=== PATIENT | female | born 1945 | race Caucasian/White ===

== ENCOUNTER 2025-02-01 17:55 | Inpatient (IN) | payer OTHER, SELFPAY ==
[2025-02-01] VITALS (7 sets, daily range): BP systolic 112–137; BP diastolic 49–67; BMI 24.2; BMI 24.0
--- NOTE | 2025-02-01 12:22 | W.PN.UPDATE ---
Update Note
Progress Note Update
Vascular consult/Office note below
Plan:
-Admit to Hospitalist
-Heparin gtt
-Cardiology workup/ embolic source
-LE arterial US/BEATRICE/TBI
-Vein mapping US
-Tentative plan for LE bypass Tuesday 02/[address] Gaitan
[2025-02-01 12:33] LABS: % Basophils 0.3 % (0-2); % Eosinophils 1.4 % (0-6); % Immature Granulocytes 0.4 % (0-0.5); % Lymphocytes 42.1 % (20.5-51.1); % Monocytes 5.4 % (1.7-9.3); % Neutrophils 50.4 % (42.2-75.2); Absolute Eosinophils 0.1 10^3/uL (0-0.7); Absolute Lymphocytes 3.3 10^3/uL (1.2-3.4); Absolute Monocytes 0.4 10^3/uL (0.1-0.6); Hematocrit 41.3 % (37.0-47.0); Hemoglobin 13.7 g/dL (12.0-16.0); Mean Corp Hgb Conc. 33.2 g/dL (33.0-37.0); Mean Corpuscular Hgb 29.5 pg (27.0-31.0); Mean Corpuscular Volume 88.8 fL (81.0-99.0); Mean Platelet Volume 9.6 fL (7.4-10.4); Nucleated Red Blood Cells % 0 %; Platelet Count 186 10^3/uL (130-400); Red Blood Cell Count 4.65 10^6/uL (4.20-5.40); Red Cell Dist. Width 13.7 % (11.5-14.5); White Blood Cell Count 7.8 10^3/uL (4.8-10.8)
[2025-02-01 12:40] LABS: INR 0.96; PT 13.1 Sec (11.4-14.6)
[2025-02-01 12:41] LABS: APTT 26.5 Sec (23.4-35.0)
[2025-02-01 12:49] LABS: ALT (SGPT) 23 U/L (0-35); AST (SGOT) 26 U/L (14-36); Albumin 3.9 g/dl (3.5-5.0); Alkaline Phosphatase 74 U/L (38-126); Blood Urea Nitrogen 14 mg/dl (7-17); Calcium 8.8 mg/dl (8.4-10.2); Carbon Dioxide 29 mmol/L (22-30); Chloride 103 mmol/L (98-107); Glucose 101 mg/dl (70-99); Potassium 4.2 mmol/L (3.5-5.1); Sodium 139 mmol/L (135-145); Total Bilirubin 0.5 mg/dl (0.2-1.3); Total Protein 6.5 g/dl (6.3-8.2); eGFR > 60.00
--- NOTE | 2025-02-01 16:53 | ED.GENMED ---
History of Present Illness
General
Chief Complaint: Cardiac Symptoms
Source: patient and family
Exam Limitations: none
Time Seen by Provider: 02/01/25 15:58
Nursing documentation reviewed up to this point in time: agreed with
History of Present Illness
History of Present Illness:
Patient presents to ED secondary to worsening left toe redness over the past 10 days, along with discomfort when ambulating. Patient had an outpatient CT angiogram of lower extremity which revealed occlusion of SFA. Patient subsequently evaluated
by Dr. Gaitan, vascular surgery. Patient referred to ED for further evaluation and admission, including heparin protocol, along with further workup as inpatient, as patient has been experiencing generalized fatigue and weakness with exertional
activities over the past 3 weeks. Patient denies fever or chills. Denies chest pain or shortness of breath. Denies nausea or vomiting. Denies loss of appetite. Denies recent change in medications or diet. Denies loss of sensation or weakness
of the affected leg.
Review of Systems
Review of Systems
Allergies reviewed?: Yes
All Other Systems: ROS reviewed and negative except as documented in HPI and ROS
Constitutional: Reports fatigue; Denies fever
Respiratory: Reports no symptoms; Denies trouble breathing
Cardiac: Reports no symptoms; Denies chest pain
ABD/GI: Reports no symptoms; Denies vomiting or diarrhea
Musculoskeletal: Reports no symptoms
Skin: Reports other (toe redness w pain)
Neurological: Reports no symptoms; Denies dizzy, headache, weakness or numbness
Phy Exam
Physical Exam
Physical Exam:
Physical Exam
General: no apparent distress, not acutely ill. afebrile
Head: nc/at. eomi
Neck: supple. no meningeal signs.
Heart: s1/s2 regular rate and rhythm, no murmur.
Lungs: no acute respiratory distress. clear bilaterally
Abdomen: normal bowel sounds. not tender.
Neuro: alert and oriented x 3. no focal neurological deficits
Skin: no rash. left 2nd/3rd/4th toe: erythema with mild tenderness over distal phalanx without ecchymosis/discoloration
Psychiatric: well kept. interactive and cooperative
Extremities: no edema. no calf tenderness.
Course
Orders/Labs/Results
Orders:
Orders
02/01/25 Lunch
Cholesterol Lowering
At Your Request: Full Participation
Does patient need a safe tray?: No
Cholesterol Lowering: Sodium, 2 Gram
02/01/25 11:57
ECG [Electrocardiogram (*1)] Urgent
Reason for Study: Chest Pain
EKG- Treatment ONCE
02/01/25 12:17
Comprehensive Metabolic Panel Urgent
PT/INR [Prothrombin Time] Urgent
PTT Urgent
02/01/25 12:18
Complete Blood Count/With Diff Urgent
02/01/25 16:30
US Periph Art LOWER Ext w BEATRICE Routine
Comment: add TBI too please
Reason For Exam: PAD, rest pain
US Vascular Mapping Bilateral Routine
Comment:
Reason For Exam: requires bypass
02/01/25 16:31
Heparin Protocol- PTT Orders As Directed
PTT per Heparin protocol: -Obtain CBC and baseline PTT - if not already collected.
-Obtain PTT 6 hours from start of infusion. Then, every 6 hours until 2 consecutive
PTT's are therapeutic. Then, PTT Daily.
-With each rate change, obtain PTT every 6 hours until 2 consecutive PTT's are
therapeutic. Then, PTT Daily.
Notify MD As Directed
Notify physician if: PTT is greater than or equal to 200.
02/01/25 16:45
Heparin 73828 Units/250 ml 25,000 units in 250 ml IV PER PROTOCOL
Weight to be used for heparin protocol in kilograms (kg):: 64
Protocol:: Vascular Surgery
PTT Goal Range to be used:: PTT 73 to 111 seconds
Order type:: Initial
INITIAL Infusion Dose (UNITS/KG/hr) & then follow protocol:: 18 units/kg/hr
Infusion Dose in UNITS/hr & then follow protocol (UNITS/hr):: 1,200
INFUSION RATE in mL/hr & then follow protocol (mL/hr):: 12
PTT less than or equal to 64 seconds:: Notify Ordering Provider. obtain orders for rate increase &
possible bolus
PTT 64.1 to 72.9 seconds:: Increase rate by 100 units/hr (+ 1 mL/hr)
PTT 73 to 111 seconds:: Target Range. No change in rate.
PTT 111.1 to 130.9 seconds:: Decrease rate by 100 units/hr (- 1 mL/hr)
PTT 131 to 199.9 seconds:: HOLD for 1 hour. Then decrease rate by 200 units/hr (- 2 mL/hr)
PTT greater than or equal to 200 seconds:: STOP INFUSION. Notify Ordering provider to obtain further orders.
Lab follow-up:: Each change, PTT q6h until 2 consecutive are therapeutic. Then PTT
daily.
02/01/25 17:31
Electrocardiogram (*1) Urgent
Reason for Study: Atrial Fibrillation
EKG- Treatment ONCE
02/01/25 17:41
CARDIOLOGY CONSULT Routine
Consulting Provider: Damon Amador
Was physician already notified: Yes
Reason for consult: concern for Afib
02/01/25 17:42
Admit/Transfer Patient As Directed
Co-Sign Provider:
Level of Care: Inpatient admission
Assign to:: Telemetry
Physician / Group: Hospitalist
Diagnosis: b/l SFA occlusion
Reason for Telemetry: Arrhythmia
Date to Stop Telemetry: 02/04/25
Time to Stop Telemetry: 11:00
Reason for Hospitalization: b/l SFA occlusion
Expected length of stay greater than two midnights?: Yes
ELOS- Estimated Length of Stay in days: 2
I certify the patient meets the requirements for IP care: Yes
Vascular Surgery Consult Routine
Consulting Provider: Georgi Gaitan
Was physician already notified: Yes
Reason for consult: SFA occlusion
PRN Pain Medication Management As Directed
May give lesser potent ordered pain med per pt: Yes
preference::
Protocol:: Medication orders for pain may be administered in a
manner that supports deferring to patient preference
when the pt is:
- Requesting an ordered lesser potent pain medication.
Least to most potent pain medications are defined
as: acetaminophen < NSAID < tramadol < opioids
(morphine, oxycodone, hydromorphone).
- Requesting a lesser dose of the same medication IF
ORDERED.
- Requesting a less intrusive route of administration
if both routes are prescribed by the provider (PO <
IV).
02/01/25 17:44
Code Status As Directed
Resuscitation Status: Full Code
02/01/25 17:54
HEMATOLOGY CONSULT Routine
Consulting Provider: Lan Leslie
Was physician already notified: Yes
Reason for consult: thrombophilia w/u
02/01/25 20:24
Acetaminophen [Tylenol] 650 mg PO Q4HPRN PRN
Bisacodyl [Dulcolax] 10 mg RECTAL [id number] PRN
Docusate W/Senna [Senokot-S] 1 tablet PO BIDPRN PRN
Polyethylene Glycol Powder [Miralax] 17 grams PO DAILYPRN PRN
02/01/25 20:24
Echo 2D MMode Color/Doppler Routine
Reason for Study: possible afib
Heparin Protocol- PTT Orders As Directed
PTT per Heparin protocol: -Obtain CBC and baseline PTT - if not already collected.
-Obtain PTT 6 hours from start of infusion. Then, every 6 hours until 2 consecutive
PTT's are therapeutic. Then, PTT Daily.
-With each rate change, obtain PTT every 6 hours until 2 consecutive PTT's are
therapeutic. Then, PTT Daily.
Activity As Directed
Activity Level: Out of Bed-Early Mobility
Notify MD As Directed
Notify physician if: PTT is greater than or equal to 200.
Vital Signs As Directed
Frequency: Per unit guidelines
02/01/25 22:00
Latanoprost [Xalatan Ophthalmic Solution] See Dose Instructions BOTH EYES HS
02/01/25 23:50
PTT Urgent
02/02/25 06:00
Complete Blood Count/With Diff IN AM
Comprehensive Metabolic Panel IN AM
Lipid Profile [Cardiovascular Evaluation] IN AM
Lupus Anticoagulant Panel Refl [S] IN AM
Magnesium IN AM
TSH Reflex To Free T4 IN AM
02/02/25 08:00
Clopidogrel Bisulfate [Plavix] 75 mg PO DAILY
Rosuvastatin Calcium [Crestor] 5 mg PO DAILY
02/03/25 06:00
Complete Blood Count/No Diff Q2D
Comment: Notify MD if platelet count is <130,000 or decreases by 50% from baseline
02/03/25 08:00
Alendronate Sodium [Fosamax] 70 mg PO PEREZ
02/04/25 11:00
DC Protocol for Telemetry ONCE
02/05/25 06:00
Complete Blood Count/No Diff Q2D
Comment: Notify MD if platelet count is <130,000 or decreases by 50% from baseline
02/07/25 06:00
Complete Blood Count/No Diff Q2D
Comment: Notify MD if platelet count is <130,000 or decreases by 50% from baseline
02/09/25 06:00
Complete Blood Count/No Diff Q2D
Comment: Notify MD if platelet count is <130,000 or decreases by 50% from baseline
02/11/25 06:00
Complete Blood Count/No Diff Q2D
Comment: Notify MD if platelet count is <130,000 or decreases by 50% from baseline
02/13/25 06:00
Complete Blood Count/No Diff Q2D
Comment: Notify MD if platelet count is <130,000 or decreases by 50% from baseline
02/15/25 06:00
Complete Blood Count/No Diff Q2D
Comment: Notify MD if platelet count is <130,000 or decreases by 50% from baseline
02/17/25 06:00
Complete Blood Count/No Diff Q2D
Comment: Notify MD if platelet count is <130,000 or decreases by 50% from baseline
Abnormal Lab Results
02/01/25
12:17
Creatinine 0.5 L mg/dL
(0.6-1.0)
Glucose 101 H mg/dl
(70-99)
02/01/25 12:18
02/01/25 12:17
Vital Signs
Initial and Last Documented VS:
Initial Vital Signs
Temp Pulse Resp BP Pulse Ox
97.7 F 63 18 112/58 99
02/01/25 12:07 02/01/25 12:07 02/01/25 12:07 02/01/25 12:07 02/01/25 12:07
Last Documented Vital Signs
Temp Pulse Resp BP Pulse Ox
97.5 F 68 18 137/61 95
02/01/25 20:39 02/01/25 20:39 02/01/25 20:39 02/01/25 20:39 02/01/25 20:39
MDM/Problems Addressed
MDM/Problems Addressed:
Patient evaluated by vascular surgery, Dr. Gaitan. Requests hospitalist admission for further evaluation and treatment, including heparin protocol.
*EKG
Interpreted by ED Provider?: Yes
EKG Intrepretation Date: 02/01/25
Heart Rate: 73
Rate: normal
Rhythm: sinus and PAC's
[place]: normal axis
Interval: normal interval
*Critical Care Note
Total Time (30-74mins, 75-104mins- exclusive of procedures): Not Applicable
ED Attending Note
-
Portions of this chart may have been created with voice recognition software.� Occasional wrong word or��sound alike� substitutions may have occurred due to the inherent limitations of voice recognition software.
Discharge Plan
Departure
Patient Disposition: Admit
Date of Disposition: 02/01/25
Time of Disposition: 17:03
Admit to: Telemetry
Presentation/result/management discussed w/ accepting MD/DO: Hospitalist
Discharge Problem:
PAD (peripheral artery disease)
Interventions
Interventions:
*Risk Screen - Suicide Last Done: 02/01/25 12:07
*General Assessment Last Done: 02/01/25 12:07
*Neglect/Abuse Screening Last Done: 02/01/25 12:07
*ED COVID-19 Vaccine History Last Done: 02/01/25 12:07
*Nursing Disposition Last Done: 02/01/25 21:09
ED- Pulmonary Assessment Last Done: 02/01/25 16:22
ED- Cardiac Assessment Last Done: 02/01/25 16:22
Discharge Date and Time
Discharge Date/Time: 02/01/25 21:11
[2025-02-01] MEDS: HEPARIN 25000 UNITS/250 ML IV (17:46)
--- NOTE | 2025-02-01 17:58 | HPS.HSE ---
Family Physician
-
Family Physician: Josselyn Rehman
Chief Complaint
-
b/l LE pain
History of Present Illness
79yo F with osteoporosis, HLD, CAD sent from the vascular office with findings of b/l SFA occlusion on outpatient CTA. She noticed pain in her toes with discoloration started approximately 2 weeks ago. She never had any feeling of claudication in
LE, not a smoker, does not have family Hx of clotting d/o, did not feel any palpitations, chest pain. No recent infection noticed.
Medical History
Past Medical History
Past Medical History: Reports Other
Additional Past Medical History:
see HPI
Past Surgical History: Reports None
Social History
Tobacco: Former Smoker
Alcohol: None
Drug: None
Family History
Family History: Not pertinent
Allergies / Home Medications
Allergies reflects when Allergies were last updated in [employer].
Home Medications with original date entered in [employer]
Allergy/Medication List:
Allergies
Allergy/AdvReac Type Severity Reaction Status Date / Time
codeine Allergy Unknown Verified 02/01/25 12:11
Penicillins Allergy Unknown Verified 02/01/25 12:11
Home Medications
alendronate 70 mg tablet 70 mg PO PEREZ 02/01/25
calcium carbonate 500 mg PO DAILY 02/01/25
cholecalciferol (vitamin D3) 50 mcg (2,000 unit) tablet (Vitamin D3) 50 mcg PO DAILY 02/01/25
clopidogrel 75 mg tablet 75 mg PO DAILY 02/01/25
latanoprost 0.005 % eye drops 1 drp BOTH EYES HS 02/01/25
rosuvastatin 5 mg tablet 5 mg PO DAILY 02/01/25
Review of Systems
-
History Source: Patient
A 12 point ROS was completed and negative except as noted: Yes
Musculoskeletal: Reports See HPI
Physical Exam
Vital Signs
Vital Signs
Temp Pulse Resp BP Pulse Ox
97.7 F 68 18 134/67 98
02/01/25 12:07 02/01/25 16:24 02/01/25 16:24 02/01/25 16:24 02/01/25 16:24
Physical Exam
General: Well Developed, Well Nourished and No Apparent Distress
HEENT: NormoCephalic, Anicteric and Moist mucous membranes
Respiratory: Clear; No Wheezes, Rhonchi or Crackles
Cardiac: Irregular Rhythm; No Tachycardia or Murmur
GI: Soft, Non Tender and Non Distended
Genito-urinary: No costovertebral tender
Musculoskeletal: No Clubbing, No Cyanosis, No Edema and Other
Skin: Other (cyanosis of the toes)
Neuro: Awake, Alert, Oriented and AO x 3
Psych: Calm
Laboratory Results
-
02/01/25 12:18
02/01/25 12:17
Laboratory Results
PT 13.1 Sec (11.4-14.6) 02/01/25 12:17
INR 0.96 02/01/25 12:17
APTT 26.5 Sec (23.4-35.0) 02/01/25 12:17
Total Bilirubin 0.5 mg/dl (0.2-1.3) 02/01/25 12:17
AST 26 U/L (14-36) 02/01/25 12:17
ALT 23 U/L (0-35) 02/01/25 12:17
Alkaline Phosphatase 74 U/L (38-126) 02/01/25 12:17
Impression/Plan
-
A/P:
#concern for critical ischemia of LE 2/2 b/l SFA occlusion
#Irregular HR
Heparin drip
Vasc Sx for mgmt
Telemetry
Echo
Cardio consult
EKG in ED with PACs
cont Plavix
check TSH, Lipid panel
Will need w/u for thrombophilia - hematology and send Lupus AC for now. Defer Protein S,C, factor V leuden, [id number] to outpatient as per hospital policy
#Osteoporosis
#Glaucoma
#HLD
cont home meds
DVT ppx heparin drip
Full code
I have spent at least 78min reviewing chart, test results, communication with consultants and providing direct patient care
--- NOTE | 2025-02-01 20:30 | PTCARENOTE ---
Pt arrived to unit from ED, ambulated independently from stretcher to bed. No complaints of pain, dizziness or numbness in legs. AAOx3, VSS. Pt oriented to room and call rocha is in reach.
[2025-02-01] MEDS: XALATAN OPHTHALMIC SOLUTION 1 DROP BOTH EYES (21:04)
[2025-02-02 00:20] LABS: APTT 104.4 Sec (23.4-35.0)
[2025-02-02 03:08] VITALS: BP 130/48
[2025-02-02 07:14] VITALS: BP 135/61
--- NOTE | 2025-02-02 09:12 | W.PN.HOSP.TC ---
Today's Communication/Plan
-
pending VascSx mgmt
Echo
Assessment / Plan
Assessment / Plan
79yo F with osteoporosis, HLD, CAD sent from the vascular office with findings of b/l SFA occlusion on outpatient CTA. pending angiogram by Vascular on 02/06/25
A/P:
#concern for critical ischemia of LE 2/2 b/l SFA occlusion
#Irregular HR
Heparin drip
Vasc Sx for mgmt
Telemetry
Echo
Cardio consult
EKG in ED with PACs
cont Plavix
check TSH, Lipid panel
Will need w/u for thrombophilia - hematology consult and send Lupus AC for now. Defer Protein S,C, factor V leuden, [id number] to outpatient as per hospital policy
#Osteoporosis
#Glaucoma
#HLD
cont home meds
DVT ppx heparin drip
Full code
I have spent at least 58min reviewing chart, test results, communication with consultants and providing direct patient care
Anticipated Discharge: > 48 hours
Subjective/Interval History
-
Date of Service: February 02, 2025
Objective Data
-
Labs:
Laboratory Results
02/01/25 02/02/25 02/02/25
23:58 09:05 09:06
WBC Pending
Hgb Pending
Hct Pending
Plt Count Pending
APTT 104.4 H Pending
Sodium Pending
Potassium Pending
Chloride Pending
Carbon Dioxide Pending
BUN Pending
Creatinine Pending
Glucose Pending
Calcium Pending
Total Bilirubin Pending
AST Pending
ALT Pending
Alkaline Phosphatase Pending
Vital Signs:
Vital Signs
Temp Pulse Resp BP Pulse Ox
97.5 F 61 18 135/61 97
02/02/25 07:14 02/02/25 07:14 02/02/25 07:14 02/02/25 07:14 02/02/25 07:14
I&O
02/01/25 02/02/25 02/03/25
06:59 06:59 06:59
Intake Total 120 / 120
Balance 120 / 120
Review of Systems
-
History Source: Patient
All other systems: Reviewed and negative
Physical Exam
-
General: No Apparent Distress
HEENT: Normocephalic
Respiratory: Clear to Auscultation
Cardiac: Regular Rhythm
Genito-urinary: No Costovertebral Tender
Musculoskeletal: No Clubbing, No Cyanosis and No Edema
Skin: Other (resolved darkening of toes)
Neuro: Awake, Alert, Oriented and AO x 3
Psych: Calm
[2025-02-02 09:27] LABS: % Basophils 0.5 % (0-2); % Eosinophils 2.3 % (0-6); % Immature Granulocytes 0.3 % (0-0.5); % Lymphocytes 49.2 % (20.5-51.1); % Monocytes 6.1 % (1.7-9.3); % Neutrophils 41.6 % (42.2-75.2); Absolute Eosinophils 0.2 10^3/uL (0-0.7); Absolute Lymphocytes 3.2 10^3/uL (1.2-3.4); Absolute Monocytes 0.4 10^3/uL (0.1-0.6); Absolute Neutrophils 2.7 10^3/uL (1.4-6.5); Hematocrit 42.3 % (37.0-47.0); Hemoglobin 14.3 g/dL (12.0-16.0); Mean Corp Hgb Conc. 33.8 g/dL (33.0-37.0); Mean Corpuscular Hgb 29.9 pg (27.0-31.0); Mean Corpuscular Volume 88.5 fL (81.0-99.0); Mean Platelet Volume 9.8 fL (7.4-10.4); Nucleated Red Blood Cells % 0 %; Platelet Count 186 10^3/uL (130-400); Red Blood Cell Count 4.78 10^6/uL (4.20-5.40); Red Cell Dist. Width 13.6 % (11.5-14.5); White Blood Cell Count 6.4 10^3/uL (4.8-10.8)
[2025-02-02] MEDS: PLAVIX 75 MG PO (09:28)
[2025-02-02] MEDS: CRESTOR 5 MG PO (09:29)
[2025-02-02 09:58] LABS: APTT > 200.0 Sec (23.4-35.0)
--- NOTE | 2025-02-02 10:00 | PTCARENOTE ---
patient's APTT > 200, per Protocol, infusion stopped and ordering provider notified, MD Espinoza. Per MD restart in 2 hours at infusion rate 10ml/hr.
[2025-02-02 10:23] LABS: ALT (SGPT) 19 U/L (0-35); AST (SGOT) 24 U/L (14-36); Albumin 4.1 g/dl (3.5-5.0); Alkaline Phosphatase 78 U/L (38-126); Blood Urea Nitrogen 12 mg/dl (7-17); Calcium 8.9 mg/dl (8.4-10.2); Carbon Dioxide 28 mmol/L (22-30); Chloride 104 mmol/L (98-107); Estimated Creatinine Clearance 64 ml/min; Glucose 104 mg/dl (70-99); HDL Cholesterol 61 mg/dl; LDL Cholesterol, Calculated 103 mg/dl; Magnesium 2.5 mg/dl (1.6-2.3); Potassium 4.3 mmol/L (3.5-5.1); Sodium 138 mmol/L (135-145); Total Bilirubin 0.9 mg/dl (0.2-1.3); Total Cholesterol 193 mg/dl (50-199); Total Protein 6.5 g/dl (6.3-8.2); Triglyceride 145 mg/dl (10-149); Very Low Density Lipoprotein 29 mg/dl (0-30); eGFR > 60.00
[2025-02-02 10:42] LABS: TSH Reflex To Free T4 1.29 uIU/ml (0.47-4.68)
[2025-02-02 11:26] VITALS: BP 115/50
--- NOTE | 2025-02-02 11:38 | CON.CAR ---
Addendum entered and electronically signed by Damon Amador MD 02/02/25 13:04:
Patient was seen and evaluated personally. I agree with plan of care, physical examination and documentation as noted below.
Briefly, 79-year-old woman with hypertension, hyperlipidemia and peripheral artery disease with concerns for bilateral SFA occlusion is being evaluated for possible vascular intervention by Dr. Gaitan later this week . Patient was noted to have
irregularly irregular rhythm on the elementary and cardiology was consulted for possible atrial fibrillation. Patient's rhythm strip was reviewed in detail and patient is in normal sinus rhythm with frequent PACs. Patient is not on any
beta-blockers and we will start her on 25 mg twice a day of metoprolol. Patient has had no workup done in the past. We will start patient's workup with an echo and rule out any ischemic heart disease with stress test on Tuesday for her possible
vascular surgery plan for later this week.
Echo on Tuesday
Myocardial perfusion scan on Tuesday.
If both tests are normal, okay to proceed for the vascular surgery as planned on 02/06/25
Original Note:
Consultation
Consultation Request
Date/Time Consultation Requested: 02/01/2025 17:15
Date/Time Consultation Performed: 02/02/2025 10:45
Requesting Provider: Dr. Espinoza
Performing Provider: VIRAJ Mai for Dr. Amador
Reason for Consultation: Concern for atrial fibrillation
Medical History
-
Chief Complaint: Right sided foot/toe pain
History of Present Illness:
Ria Diop is an 79-year-old female with hypertension, dyslipidemia, and osteoporosis who was referred from the vascular surgery office after concerns of bilateral SFA occlusion on an outpatient CTA. Testing was prompted by redness and pain in
her right toes. Imaging reviewed by vascular surgeon reports it appeared to be a flush occlusion concern for thrombotic occlusion. Cardiology was consulted for concern for atrial fibrillation. Hematology is also following. The plan is for
vascular surgery 02/06/2025. She has no chest pain, shortness of breath, nor palpitations.
Past Medical History
Past Medical History: HTN, Hypercholesterolemia and Other (PAD)
Social History
Tobacco: Former Smoker (1 PPD x 20 years)
Alcohol: Occasional
Drug: None
Personal:
Living: With Family
Employment: Retired
Family History
Family History: Reviewed & Not Pertinent
Allergies / Home Medications
Allergy/AdvReac Type Severity Reaction Status Date / Time
Penicillins Allergy Severe Swelling Verified 02/01/25 20:53
codeine Allergy Intermediate Swelling Verified 02/01/25 20:53
�Medication �Instructions �Recorded �Confirmed �Type
alendronate 70 mg tablet 70 mg PO PEREZ Osteoperosis 02/01/25 02/01/25 History
calcium carbonate 500 mg PO DAILY Supplement 02/01/25 02/01/25 History
cholecalciferol (vitamin D3) 50 50 mcg PO DAILY Supplement 02/01/25 02/01/25 History
mcg (2,000 unit) tablet (Vitamin
D3)
clopidogrel 75 mg tablet 75 mg PO DAILY Blood Clot 02/01/25 02/01/25 History
Prevention/Tx
latanoprost 0.005 % eye drops 1 drp BOTH EYES HS Eye Condition 02/01/25 02/01/25 History
rosuvastatin 5 mg tablet 5 mg PO DAILY High Cholesterol 02/01/25 02/01/25 History
Review of Systems
-
History Source: Patient
All other systems: Negative unless noted
Constitutional: No Symptoms
EENT: No Symptoms
Respiratory: No Symptoms
Cardiac: No Symptoms
Abdomen/GI: No Symptoms
: No Symptoms
Musculoskeletal: No Symptoms
Skin: No Symptoms
Neurological: No Symptoms
Endocrine: No Symptoms
Hematologic/Lymphatic: No Symptoms
Physical Exam
Vital Signs
Temp Pulse Resp BP Pulse Ox
97.9 F 70 18 115/50 96
02/02/25 11:26 02/02/25 11:26 02/02/25 11:26 02/02/25 11:26 02/02/25 11:26
Lab Results
02/02/25 09:06
02/02/25 09:06
Physical Exam
General: Well Developed, Well Nourished, No Apparent Distress and Comfortable
HEENT: Normocephalic, Anicteric and Moist Mucous Membranes
Respiratory: Clear and Non Labored Respirations
Cardiac: S1/S2 and Regular Rhythm
Breast: Deferred by me
GI: Non Tender, Non Distended and Normal Bowel Sounds
Rectal: Deferred by Provider
Genito-urinary: No Costovertebral Tender
Musculoskeletal: No Clubbing and No Cyanosis
Skin: Warm and Dry
Neuro: AO x 3
Hematologic/Lymphatic: No Lymphadenopathy
Psych: Calm
Impression / Plan
-
I/P: 79F with hypertension, dyslipidemia, and osteoporosis who was referred from the vascular surgery office after concerns of bilateral SFA occlusion on an outpatient CTA
Outpatient center lead consultant: None
Preoperative risk assessment - LE Bypass with Dr. Gaitan
- Denies chest pain and shortness of breath
- Echocardiogram Tuesday
- Lexiscan nuclear stress test on Tuesday
PAD with SFA occlusion
- On clopidogrel and heparin per vascular surgery
- Plans are for bypass tentatively 02/06/2025
- Thrombophilia workup per hematology
PACs, start beta-chet
Hypertension, on no agents prior to arrival, metoprolol succinate started as above
HLD, on rosuvastatin 5 mg, LDL 103, increased to 20 mg
Data Reviewed
-
EKG: Report Reviewed by me (Sinus rhythm with PACs)
Labs: Labs Reviewed by me
Old Records: Reviewed
[2025-02-02] MEDS: TYLENOL 650 MG PO (12:00)
--- NOTE | 2025-02-02 12:15 | CON.ONC ---
Impression
Impression
Peripheral arterial disease with SFA occlusion
Hypercholesterolemia
Hypertension
Plan
Plan
Arterial thrombophilia -prothrombin gene mutation, lupus anticoagulant and anticardiolipin antibody
Anticipate bypass
Patient History
History of Present Illness
Patient is [id number] female with hypertension, dyslipidemia, and osteoporosis who was referred from the vascular surgery office after concerns of bilateral SFA occlusion on an outpatient CTA prompted by complaints of left foot pain and red toes.
Previously evaluated last week at where a CTA was performed. She was discharged and referred to vascular surgery Imaging reviewed by vascular surgeon reports it appeared to be a flush occlusion concern for thrombotic
occlusion. Cardiology was consulted for concern for atrial fibrillation. Hematology is also following. The plan is for vascular surgery 02/06/2025. She has no chest pain, shortness of breath, nor palpitations. She was accompanied by her daughter
and during today's consultation.
Past-Medical/Surgical History
Past Medical History
HTN, Hypercholesterolemia, peripheral arterial disease and Osteoporosis
Social History
Tobacco: Former Smoker (1 PPD x 20 years)
Alcohol: Occasional
Drug: None
Personal:
Living: With Family
Employment: Retired
Family History
Family History: Reviewed & Not Pertinent
Patient Medication
�Medication �Instructions �Recorded �Confirmed �Last Taken �Type
alendronate 70 mg tablet 70 mg PO PEREZ Osteoperosis 02/01/25 02/01/25 01/27/25 History
calcium carbonate 500 mg PO DAILY Supplement 02/01/25 02/01/25 01/31/25 History
cholecalciferol (vitamin D3) 50 50 mcg PO DAILY Supplement 02/01/25 02/01/25 01/31/25 History
mcg (2,000 unit) tablet (Vitamin
D3)
clopidogrel 75 mg tablet 75 mg PO DAILY Blood Clot 02/01/25 02/01/25 02/01/25 History
Prevention/Tx
latanoprost 0.005 % eye drops 1 drp BOTH EYES HS Eye Condition 02/01/25 02/01/25 01/31/25 History
rosuvastatin 5 mg tablet 5 mg PO DAILY High Cholesterol 02/01/25 02/01/25 01/31/25 History
Active Medications
Generic Name Dose Route Start Last Admin
Trade Name Freq PRN Reason Stop Dose Admin
Acetaminophen 650 mg 02/01/25 20:24 02/02/25 12:00
Acetaminophen 325 Mg Tablet PO 03/01/25 20:23 650 mg
[id number] PRN Administration
mild pain/PATEL/temp> 100.4F
Alendronate Sodium 70 mg 02/03/25 08:00
Alendronate 70 Mg Tablet PO 03/03/25 07:59
PEREZ JINA
Bisacodyl 10 mg 02/01/25 20:24
Bisacodyl 10 Mg Rectal Suppository RECTAL 03/01/25 20:23
[id number] PRN
constipation
Clopidogrel Bisulfate 75 mg 02/02/25 08:00 02/02/25 09:28
Clopidogrel 75 Mg Tablet PO 03/02/25 07:59 75 mg
DAILY JINA Administration
Heparin Sodium 25,000 units in 250 mls @ 0 mls/hr 02/01/25 16:45 02/01/25 17:46
Heparin 84357 Units/250 Ml IV 250 mls
PER PROTOCOL JINA Administration
Protocol
Per Protocol
Latanoprost 0 drop 02/01/25 22:00 02/01/25 21:04
Latanoprost 0.005% (Ophthalmic Solution) 2.5 Ml Bottle BOTH EYES 03/01/25 21:59 1 drop
HS JINA Administration
Metoprolol Succinate 25 mg 02/02/25 20:00
Metoprolol 25 Mg Extended Release Tablet PO 03/02/25 19:59
BID JINA
Polyethylene Glycol 17 grams 02/01/25 20:24
Polyethylene Glycol Powder 17 Grams Packet PO 03/01/25 20:23
DAILYPRN PRN
constipation
Rosuvastatin Calcium 20 mg 02/02/25 11:44
Rosuvastatin (Crestor) 5 Mg Tablet PO 03/02/25 07:59
DAILY JINA
Senna/Docusate Sodium 1 tablet 02/01/25 20:24
Docusate W/Senna (Gaye-Colace) Tablet PO 03/01/25 20:23
BIDPRN PRN
constipation
Sodium Chloride 0 flush 02/01/25 21:00
Sodium Chloride 0.9% (Flush) Syringe IV 03/01/25 20:59
PER PROTOCOL JINA
Review of Systems
-
12 point review of systems fails elicit additional complaints
Physical Exam
-
Physical Exam
General: Well Developed, Well Nourished, No Apparent Distress and Comfortable
HEENT: Normocephalic
Respiratory: Clear
Cardiac: S1/S2 and Regular Rhythm
GI: Non Tender, Non Distended and Normal Bowel Sounds
Genito-urinary: No Costovertebral Tender
Musculoskeletal: No Clubbing and No Cyanosis
Skin: Warm and Dry
Neuro: AO x 3
Hematologic/Lymphatic: No Lymphadenopathy
Psych: Calm
Labs
Lab Results
WBC 6.4 10^3/uL (4.8-10.8) 02/02/25 09:06
RBC 4.78 10^6/uL (4.20-5.40) 02/02/25 09:06
Hgb 14.3 g/dL (12.0-16.0) 02/02/25 09:06
Hct 42.3 % (37.0-47.0) 02/02/25 09:06
MCV 88.5 fL (81.0-99.0) 02/02/25 09:06
MCH 29.9 pg (27.0-31.0) 02/02/25 09:06
MCHC 33.8 g/dL (33.0-37.0) 02/02/25 09:06
RDW 13.6 % (11.5-14.5) 02/02/25 09:06
Plt Count 186 10^3/uL (130-400) 02/02/25 09:06
MPV 9.8 fL (7.4-10.4) 02/02/25 09:06
Abs Immat Gran (auto) 0.0 10^3/uL (0-0.05) 02/02/25 09:06
Absolute Neuts (auto) 2.7 10^3/uL (1.4-6.5) 02/02/25 09:06
Absolute Lymphs (auto) 3.2 10^3/uL (1.2-3.4) 02/02/25 09:06
Absolute Monos (auto) 0.4 10^3/uL (0.1-0.6) 02/02/25 09:06
Absolute Eos (auto) 0.2 10^3/uL (0-0.7) 02/02/25 09:06
Absolute Basos (auto) 0.0 10^3/uL (0-0.2) 02/02/25 09:06
Immature Gran % 0.3 % (0-0.5) 02/02/25 09:06
Neutrophils % 41.6 % (42.2-75.2) L 02/02/25 09:06
Lymphocytes % 49.2 % (20.5-51.1) 02/02/25 09:06
Monocytes % 6.1 % (1.7-9.3) 02/02/25 09:06
Eosinophils % 2.3 % (0-6) 02/02/25 09:06
Basophils % 0.5 % (0-2) 02/02/25 09:06
Creatinine 0.5 mg/dL (0.6-1.0) L 02/02/25 09:06
Vital Signs
Vital Signs
Temp Pulse Resp BP Pulse Ox
97.9 F 70 18 115/50 96
02/02/25 11:26 02/02/25 11:26 02/02/25 11:26 02/02/25 11:26 02/02/25 11:26
[2025-02-02 15:10] VITALS: BP 115/51
--- NOTE | 2025-02-02 15:49 | PTCARENOTE ---
Patient c/o pain and tingling to LLE, Patients toes remain pink and is not hot to touch. patient states pain is a new change. Patient ambulating in room. Patient remains on heparin gtt. patient in NAD. MD Espinoza notified of new findings and states
no new orders at this time.
--- NOTE | 2025-02-02 16:05 | CM ---
CM reviewed chart, patient seen bedside with daughter, initial assessment completed. Patient resides independently in a private home, multiple story, first floor set up. Patient denies use of DME, denies VN/SNF history. Patient PCP Josselyn Rehman,
pharmacy [facility], confirms prescription coverage. Cardiology following, stress test Tuesday, patient for vascular surgery 02/06. CM will continue to follow for all discharge planning needs.
Plan; home no needs, watch for VN needs closer to discharge
[2025-02-02] MEDS: HEPARIN 25000 UNITS/250 ML IV (17:25)
[2025-02-02 19:24] LABS: APTT 99.3 Sec (23.4-35.0)
[2025-02-02 19:30] VITALS: BP 120/63
[2025-02-02] MEDS: TOPROL XL 25 MG PO (20:29)
[2025-02-02 23:00] VITALS: BP 135/75
[2025-02-02] MEDS: XALATAN OPHTHALMIC SOLUTION 1 DROP BOTH EYES (23:03)
[2025-02-03 02:00] LABS: APTT 130.9 Sec (23.4-35.0)
[2025-02-03 03:30] VITALS: BP 117/52
[2025-02-03 07:25] VITALS: BP 123/52
[2025-02-03 08:05] LABS: Lactic Acid 0.8 mmol/L (0.7-2.0)
[2025-02-03 08:07] LABS: Hematocrit 38.8 % (37.0-47.0); Hemoglobin 13.2 g/dL (12.0-16.0); Mean Corpuscular Hgb 29.9 pg (27.0-31.0); Mean Corpuscular Volume 87.8 fL (81.0-99.0); Mean Platelet Volume 9.8 fL (7.4-10.4); Platelet Count 190 10^3/uL (130-400); Red Blood Cell Count 4.42 10^6/uL (4.20-5.40); Red Cell Dist. Width 13.6 % (11.5-14.5); White Blood Cell Count 6.7 10^3/uL (4.8-10.8)
[2025-02-03 08:09] LABS: APTT 116.3 Sec (23.4-35.0)
[2025-02-03 09:36] LABS: Glycohemoglobin (HgbA1c) 5.5 % (4.0-5.6)
[2025-02-03] MEDS: PLAVIX 75 MG PO (09:48)
[2025-02-03] MEDS: TOPROL XL 25 MG PO (09:48)
[2025-02-03] MEDS: CRESTOR 20 MG PO (09:48)
--- NOTE | 2025-02-03 10:56 | W.PN.HOSP.TC ---
Today's Communication/Plan
-
Echo and stress test in AM
cont heparin drip
Angio on Tue
Assessment / Plan
Assessment / Plan
79yo F with osteoporosis, HLD, CAD sent from the vascular office with findings of b/l SFA occlusion on outpatient CTA. pending angiogram by Vascular on 02/06/25. Cardiology for Echo and stress test on 02/04/25 for risk stratification
A/P:
#concern for critical ischemia of LE 2/2 b/l SFA occlusion
#Irregular HR
Heparin drip
Vasc Sx for mgmt
Telemetry
Echo
Cardio consult: stress test on 02/04/25
EKG in ED with PACs
cont Plavix
check TSH, Lipid panel
Will need w/u for thrombophilia - hematology consult
#Osteoporosis
#Glaucoma
#HLD
cont home meds
DVT ppx heparin drip
Full code
I have spent at least 38min reviewing chart, test results, communication with consultants and providing direct patient care
Anticipated Discharge: > 48 hours
Subjective/Interval History
-
Date of Service: February 03, 2025
Objective Data
-
Labs:
Laboratory Results
02/03/25 02/03/25 02/03/25
01:40 07:45 14:30
WBC 6.7
Hgb 13.2
Hct 38.8
Plt Count 190
APTT 130.9 H 116.3 H Pending
Vital Signs:
Vital Signs
Temp Pulse Resp BP Pulse Ox
97.0 F 52 16 123/52 96
02/03/25 07:25 02/03/25 07:25 02/03/25 07:25 02/03/25 07:25 02/03/25 07:25
I&O
02/02/25 02/03/25 02/04/25
06:59 06:59 06:59
Intake Total 120 / 120 1296 / 1296
Balance 120 / 120 1296 / 1296
Review of Systems
-
History Source: Patient
All other systems: Reviewed and negative
Physical Exam
-
General: No Apparent Distress and Comfortable
Respiratory: Clear to Auscultation
GI: Soft, Nontender and Nondistended
Skin: Other (no discoloration of the toes)
Neuro: Awake, Alert, Oriented and AO x 3
Psych: Calm
[2025-02-03 11:33] VITALS: BP 112/47
[2025-02-03] MEDS: FOSAMAX 70 MG PO (11:42)
[2025-02-03 14:58] LABS: APTT 83.7 Sec (23.4-35.0)
[2025-02-03 15:31] VITALS: BP 113/38
[2025-02-03 19:30] VITALS: BP 122/57
[2025-02-03 21:03] LABS: APTT 61.3 Sec (23.4-35.0)
[2025-02-03] MEDS: XALATAN OPHTHALMIC SOLUTION 1 DROP BOTH EYES (22:22)
[2025-02-03] MEDS: HEPARIN 25000 UNITS/250 ML IV (22:46)
[2025-02-03 23:21] VITALS: BP 119/63
[2025-02-04 03:19] VITALS: BP 128/56
[2025-02-04 05:29] LABS: APTT 108.7 Sec (23.4-35.0)
[2025-02-04 07:53] VITALS: BP 132/56
--- NOTE | 2025-02-04 08:50 | W.PN.CD ---
Today's Communication / Plan
-
echo and stress test
continue plavix, heparin drip, Toprol XL
Impression / Plan
-
I/P: 79F with hypertension, dyslipidemia, and osteoporosis who was referred from the vascular surgery office after concerns of bilateral SFA occlusion on an outpatient CTA
Outpatient mails supervisor: None
Preoperative risk assessment - LE Bypass with Dr. Gaitan
- Echocardiogram today
- Lexiscan nuclear stress test today
PAD with SFA occlusion: severe, requiring hospitalization
- On clopidogrel and heparin drip
-heparin drip is a high risk medication, requiring monitoring of Hgb
- Thrombophilia workup per hematology
PAC's: now on Toprol XL, continue
Hypertension: cont Toprol XL
HLD, on rosuvastatin 5 mg, LDL 103, increased to 20 mg to target LDL under 55
Physical Exam
Vital Signs/Labs
Vital Signs
Temp Pulse Resp BP Pulse Ox
97.5 F 54 17 132/56 98
02/04/25 07:53 02/04/25 07:53 02/04/25 07:53 02/04/25 07:53 02/04/25 07:53
PT 13.1 Sec (11.4-14.6) 02/01/25 12:17
INR 0.96 02/01/25 12:17
APTT 108.7 Sec (23.4-35.0) H 02/04/25 05:10
Magnesium 2.5 mg/dl (1.6-2.3) H 02/02/25 09:06
Triglycerides 145 mg/dl (10-149) 02/02/25 09:06
LDL Cholesterol, Calc 103 mg/dl 02/02/25 09:06
VLDL Cholesterol, Calc 29 mg/dl (0-30) 02/02/25 09:06
HDL Cholesterol 61 mg/dl 02/02/25 09:06
Physical Exam
Constitutional: No acute distress and Comfortable
EENT: Moist mucous membranes
Cardiovascular: Rhythm & rate is regular, Pedal edema is absent and JVD pressure is normal
Respiratory: Respiratory effort normal
Neuro/Psych: AO x 3
Data Reviewed
-
Date of Service: February 04, 2025
EKG: Tracing Personally Visualized and interpreted (SR with PAC's)
Labs: Labs Reviewed by me
[2025-02-04] MEDS: LEXISCAN 0.4 MG IV (09:51)
[2025-02-04] MEDS: FLUSH (NSS) 1 FLUSH IV (09:52)
[2025-02-04 10:45] LABS: Erythrocyte Sed Rate 6 mm/hour (0-20)
[2025-02-04 12:09] VITALS: BP 129/51
--- NOTE | 2025-02-04 12:15 | PTCARENOTE ---
12:15 Pt return from Stress tests, Heparin IV drip was stopped for one hour during Stress test. Spoke to Rita Seay STRAIGHT EDGER over phone and ordered to restart Heparin IV drip at 900 units per hour then recheck PTT level at 1400. Noted orders and
explain to pt, continue to monitor pt.
--- NOTE | 2025-02-04 12:18 | W.PN.HOSP.TC ---
Today's Communication/Plan
-
monitor vitals
see plan
vascular surgery to see
cw hep,plavix
Discussed with daughter at bedside
Assessment / Plan
Assessment / Plan
79yo F with osteoporosis, HLD, CAD sent from the vascular office with findings of b/l SFA occlusion on outpatient CTA. pending angiogram by Vascular on 02/06/25. Cardiology for Echo and stress test on 02/04/25 for risk stratification
A/P:
#concern for critical ischemia of LE 2/2 b/l SFA occlusion
Heparin drip
Vasc Sx for mgmt
PACs, now on Toprol-XL
Echo 02/04 with preserved EF, no wall motion abnormality. Stress test also negative
Plan for or tentatively Tuesday
Vascular surgery
cont Plavix, heparin
Will need w/u for thrombophilia - hematology following
#Osteoporosis
#Glaucoma
#HLD
cont home meds
DVT ppx heparin drip
Full code
General: No Apparent Distress
HEENT: Normocephalic
Respiratory: Clear to Auscultation
Cardiac: Regular Rhythm
Genito-urinary: No Costovertebral Tender
Musculoskeletal: No Edema
Neuro: Awake, Alert, Oriented and AO x 3
Psych: Calm
Anticipated Discharge: > 48 hours
Subjective/Interval History
-
Date of Service: February 04, 2025
denies nausea
Objective Data
-
Labs:
Laboratory Results
02/04/25 02/04/25 02/04/25
04:22 05:10 08:40
WBC Pending
Hgb Pending
Hct Pending
Plt Count Pending
APTT Cancelled 108.7 H
Sodium Pending
Potassium Pending
Chloride Pending
Carbon Dioxide Pending
BUN Pending
Creatinine Pending
Glucose Pending
Calcium Pending
02/04/25
11:55
WBC
Hgb
Hct
Plt Count
APTT Pending
Sodium
Potassium
Chloride
Carbon Dioxide
BUN
Creatinine
Glucose
Calcium
Vital Signs:
Vital Signs
Temp Pulse Resp BP Pulse Ox
97.5 F 60 17 129/51 97
02/04/25 12:09 02/04/25 12:09 02/04/25 12:09 02/04/25 12:09 02/04/25 12:09
I&O
02/03/25 02/04/25 02/05/25
06:59 06:59 06:59
Intake Total 1296 / 1296 1440 / 1440
Balance 1296 / 1296 1440 / 1440
[2025-02-04 12:53] LABS: % Basophils 0.4 % (0-2); % Eosinophils 2.3 % (0-6); % Immature Granulocytes 0.1 % (0-0.5); % Lymphocytes 47.6 % (20.5-51.1); % Neutrophils 41.6 % (42.2-75.2); Absolute Eosinophils 0.2 10^3/uL (0-0.7); Absolute Lymphocytes 3.3 10^3/uL (1.2-3.4); Absolute Monocytes 0.6 10^3/uL (0.1-0.6); Absolute Neutrophils 2.9 10^3/uL (1.4-6.5); Hematocrit 42.7 % (37.0-47.0); Hemoglobin 14.5 g/dL (12.0-16.0); Mean Corpuscular Hgb 29.8 pg (27.0-31.0); Mean Corpuscular Volume 87.9 fL (81.0-99.0); Mean Platelet Volume 9.8 fL (7.4-10.4); Nucleated Red Blood Cells % 0 %; Platelet Count 183 10^3/uL (130-400); Red Blood Cell Count 4.86 10^6/uL (4.20-5.40); Red Cell Dist. Width 13.4 % (11.5-14.5)
[2025-02-04 13:16] LABS: Blood Urea Nitrogen 15 mg/dl (7-17); Calcium 9.5 mg/dl (8.4-10.2); Carbon Dioxide 29 mmol/L (22-30); Chloride 101 mmol/L (98-107); Estimated Creatinine Clearance 64 ml/min; Glucose 99 mg/dl (70-99); Potassium 4.4 mmol/L (3.5-5.1); Sodium 137 mmol/L (135-145); eGFR > 60.00
[2025-02-04] MEDS: CRESTOR 20 MG PO (13:36)
[2025-02-04] MEDS: PLAVIX 75 MG PO (13:36)
[2025-02-04 14:26] LABS: APTT 57.3 Sec (23.4-35.0)
--- NOTE | 2025-02-04 15:06 | W.PN.UPDATE ---
Update Note
Progress Note Update
Echo shows normal LVEF 55%, mild AR. No ischemia on nuclear stress. She can proceed to vascular surgery at intermediate risk. Toprol XL should not be interrupted. We will see again post op.
[2025-02-04 15:24] VITALS: BP 119/49
--- NOTE | 2025-02-04 18:06 | PTCARENOTE ---
1530 Noted PTT level 57.3 (per IV heparin drip protocol to notify MD ) Dr. Doran aware via [employer] and recommended to notify vascular. Spoke to Gely RENTERIA over phone and ordered to continue current IV heparin drip rate and reheck PTT level at
1800. Noted new IV Heparin drip orders. Explain to pt,continue to monitor pt.
[2025-02-04 18:45] LABS: APTT 77.8 Sec (23.4-35.0)
[2025-02-04 19:45] VITALS: BP 131/57
[2025-02-04] MEDS: TOPROL XL 25 MG PO (20:15)
[2025-02-04] MEDS: XALATAN OPHTHALMIC SOLUTION 1 DROP BOTH EYES (20:18)
[2025-02-04 23:19] VITALS: BP 128/61
[2025-02-05 01:46] LABS: APTT 92.7 Sec (23.4-35.0)
[2025-02-05 03:08] VITALS: BP 138/64
[2025-02-05] MEDS: HEPARIN 25000 UNITS/250 ML IV (04:36)
[2025-02-05 07:00] VITALS: BP 120/52
[2025-02-05 07:05] LABS: Cardiolipin IgA Antibody <10 APL (<=11); Cardiolipin IgM Antibody 11 MPL (<=12); Cardiolipin Igg Antibody <10 GPL (<=14)
[2025-02-05] MEDS: CRESTOR 20 MG PO (07:45)
[2025-02-05] MEDS: TOPROL XL 25 MG PO ×2 (07:45→19:36)
[2025-02-05] MEDS: PLAVIX 75 MG PO (07:45)
[2025-02-05 08:11] LABS: APTT 81.4 Sec (23.4-35.0)
[2025-02-05 08:16] LABS: Hemoglobin 13.5 g/dL (12.0-16.0); Mean Corp Hgb Conc. 33.8 g/dL (33.0-37.0); Mean Corpuscular Hgb 29.9 pg (27.0-31.0); Mean Corpuscular Volume 88.7 fL (81.0-99.0); Mean Platelet Volume 10.3 fL (7.4-10.4); Platelet Count 179 10^3/uL (130-400); Red Blood Cell Count 4.51 10^6/uL (4.20-5.40); Red Cell Dist. Width 13.2 % (11.5-14.5); White Blood Cell Count 6.9 10^3/uL (4.8-10.8)
[2025-02-05 08:45] LABS: Blood Urea Nitrogen 14 mg/dl (7-17); Calcium 9.3 mg/dl (8.4-10.2); Carbon Dioxide 26 mmol/L (22-30); Chloride 103 mmol/L (98-107); Estimated Creatinine Clearance 64 ml/min; Glucose 85 mg/dl (70-99); Potassium 4.3 mmol/L (3.5-5.1); Sodium 138 mmol/L (135-145); eGFR > 60.00
[2025-02-05 09:39] LABS: % Basophils 0.6 % (0-2); % Eosinophils 2.9 % (0-6); % Immature Granulocytes 0.4 % (0-0.5); % Lymphocytes 56.9 % (20.5-51.1); % Monocytes 7.7 % (1.7-9.3); % Neutrophils 31.5 % (42.2-75.2); Absolute Eosinophils 0.2 10^3/uL (0-0.7); Absolute Lymphocytes 3.9 10^3/uL (1.2-3.4); Absolute Monocytes 0.5 10^3/uL (0.1-0.6); Absolute Neutrophils 2.2 10^3/uL (1.4-6.5); Nucleated Red Blood Cells % 0 %
--- NOTE | 2025-02-05 10:52 | W.PN.UPDATE ---
Update Note
Progress Note Update
critical ischemia of LE 2/2 b/l SFA occlusion -on heparin gtt -management per vasc surgery
Arterial thrombophilia evaluation
-anticardiolipin antibody negative
-prothrombin gene mutation, beta 2 glycoprotein, lupus anticoagulant pending
[2025-02-05 11:00] VITALS: BP 103/40
--- NOTE | 2025-02-05 12:01 | W.PN.HOSP.TC ---
Today's Communication/Plan
-
Monitor vital signs see plan
Plan for OR tomorrow by vascular surgery
Assessment / Plan
Assessment / Plan
79yo F with osteoporosis, HLD, CAD sent from the vascular office with findings of b/l SFA occlusion on outpatient CTA. pending angiogram by Vascular on 02/06/25. Cardiology for Echo and stress test on 02/04/25 for risk stratification
A/P:
#concern for critical ischemia of LE 2/2 b/l SFA occlusion
Heparin drip
Vasc Sx for mgmt
PACs, now on Toprol-XL
Echo 02/04 with preserved EF, no wall motion abnormality. Stress test also negative
Plan for or tentatively Tuesday
Vascular surgery
cont Plavix, heparin
Will need w/u for thrombophilia - hematology following.. Anticardiolipin antibody negative
#Osteoporosis
#Glaucoma
#HLD
cont home meds
DVT ppx heparin drip
Full code
General: No Apparent Distress
HEENT: Normocephalic
Respiratory: Clear to Auscultation
Cardiac: Regular Rhythm
Genito-urinary: No Costovertebral Tender
Musculoskeletal: No Edema
Neuro: Awake, Alert, Oriented and AO x 3
Psych: Calm
Anticipated Discharge: > 48 hours
Subjective/Interval History
-
Date of Service: February 05, 2025
Denies nausea
Objective Data
-
Labs:
Laboratory Results
02/05/25 02/05/25
01:22 06:44
WBC 6.9
Hgb 13.5
Hct 40.0
Plt Count 179
APTT 92.7 H 81.4 H
Sodium 138
Potassium 4.3
Chloride 103
Carbon Dioxide 26
BUN 14
Creatinine 0.5 L
Glucose 85
Calcium 9.3
Vital Signs:
Vital Signs
Temp Pulse Resp BP Pulse Ox
97.4 F 63 18 120/52 99
02/05/25 07:00 02/05/25 07:45 02/05/25 07:00 02/05/25 07:45 02/05/25 07:00
I&O
02/04/25 02/05/25 02/06/25
06:59 06:59 06:59
Intake Total 1440 / 1440 1200 / 1200
Balance 1440 / 1440 1200 / 1200
[2025-02-05 15:00] VITALS: BP 115/50
--- NOTE | 2025-02-05 16:42 | W.PN.UPDATE ---
Update Note
Progress Note Update
Will proceed with vascular surgical intervention tomorrow 02/06/[address] Georgi Gaitan, patient and daughter updated at bedside. N.p.o. at midnight.
[2025-02-05 20:22] VITALS: BP 143/62
[2025-02-05 20:36] LABS: Beta-2-Glycoprotein I Ab. IgG <10 SGU (<=20); Beta-2-Glycoprotein I Ab. IgM <10 SMU (<=20)
[2025-02-05] MEDS: XALATAN OPHTHALMIC SOLUTION 1 DROP BOTH EYES (21:12)
[2025-02-05 23:20] VITALS: BP 118/47
[2025-02-06] VITALS (15 sets, daily range): BP systolic 65–166; BP diastolic 41–74; BMI 25.0
[2025-02-06] MEDS: BACTROBAN 2% OINTMENT 1 APPLIC NASAL (04:59)
[2025-02-06] MEDS: PERIDEX 0.12% ORAL RINSE 15 ML PO (05:00)
[2025-02-06] MEDS: PLAVIX 75 MG PO (08:04)
[2025-02-06] MEDS: CRESTOR 20 MG PO (08:04)
[2025-02-06 08:10] LABS: % Basophils 0.5 % (0-2); % Eosinophils 2.2 % (0-6); % Immature Granulocytes 0.5 % (0-0.5); % Lymphocytes 43.9 % (20.5-51.1); % Monocytes 7.7 % (1.7-9.3); % Neutrophils 45.2 % (42.2-75.2); Absolute Eosinophils 0.1 10^3/uL (0-0.7); Absolute Lymphocytes 2.9 10^3/uL (1.2-3.4); Absolute Monocytes 0.5 10^3/uL (0.1-0.6); Hematocrit 38.2 % (37.0-47.0); Hemoglobin 13.1 g/dL (12.0-16.0); INR 0.94; Mean Corp Hgb Conc. 34.3 g/dL (33.0-37.0); Mean Corpuscular Hgb 29.9 pg (27.0-31.0); Mean Corpuscular Volume 87.2 fL (81.0-99.0); Mean Platelet Volume 10.1 fL (7.4-10.4); Nucleated Red Blood Cells % 0 %; PT 13.1 Sec (11.4-14.6); Platelet Count 180 10^3/uL (130-400); Red Blood Cell Count 4.38 10^6/uL (4.20-5.40); Red Cell Dist. Width 13.2 % (11.5-14.5); White Blood Cell Count 6.5 10^3/uL (4.8-10.8)
[2025-02-06 08:11] LABS: APTT 31.1 Sec (23.4-35.0)
[2025-02-06 08:38] LABS: Blood Urea Nitrogen 11 mg/dl (7-17); Calcium 8.9 mg/dl (8.4-10.2); Carbon Dioxide 25 mmol/L (22-30); Chloride 103 mmol/L (98-107); Estimated Creatinine Clearance 64 ml/min; Glucose 104 mg/dl (70-99); Potassium 4.3 mmol/L (3.5-5.1); Sodium 138 mmol/L (135-145); eGFR > 60.00
[2025-02-06] MEDS: TOPROL XL PO (09:17)
[2025-02-06] MEDS: VANCOCIN 200 IV (11:21)
--- NOTE | 2025-02-06 11:34 | PTCARENOTE ---
Patient arrived to Recovery bay 5 via transport services with family at the bedside. AOx3, HR 57 SB, BP 104/53, Pox 97% room air. Patient is calm with no complaints. 1gram Vancomycin has been started per order. Pre-op checklist has been completed.
--- NOTE | 2025-02-06 11:58 | W.PN.HOSP.TC ---
Today's Communication/Plan
-
Monitor vital signs see plan
Plan for vascular surgery today
N.p.o.
Gentle hydration
Assessment / Plan
Assessment / Plan
79yo F with osteoporosis, HLD, CAD sent from the vascular office with findings of b/l SFA occlusion on outpatient CTA. pending angiogram by Vascular on 02/06/25. Cardiology for Echo and stress test on 02/04/25 for risk stratification
A/P:
#concern for critical ischemia of LE 2/2 b/l SFA occlusion
Heparin drip
Vasc Sx for mgmt
PACs, now on Toprol-XL
Echo 02/04 with preserved EF, no wall motion abnormality. Stress test also negative
Plan for OR 02/06
Vascular surgery
cont Plavix, heparin
Will need w/u for thrombophilia - hematology following.. Anticardiolipin antibody negative
#Osteoporosis
#Glaucoma
#HLD
cont home meds
DVT ppx heparin drip
Full code
General: No Apparent Distress
HEENT: Normocephalic
Respiratory: Clear to Auscultation
Cardiac: Regular Rhythm
Genito-urinary: No Costovertebral Tender
Musculoskeletal: No Edema
Neuro: Awake, Alert, Oriented and AO x 3
Psych: Calm
Anticipated Discharge: > 48 hours
Subjective/Interval History
-
Date of Service: February 06, 2025
Denies nausea
Objective Data
-
Labs:
Laboratory Results
02/06/25
07:43
WBC 6.5
Hgb 13.1
Hct 38.2
Plt Count 180
PT 13.1
INR 0.94
APTT 31.1
Sodium 138
Potassium 4.3
Chloride 103
Carbon Dioxide 25
BUN 11
Creatinine 0.5 L
Glucose 104 H
Calcium 8.9
Vital Signs:
Vital Signs
Temp Pulse Resp BP Pulse Ox
97.7 F 54 16 123/41 98
02/06/25 07:00 02/06/25 09:17 02/06/25 07:00 02/06/25 09:17 02/06/25 09:00
I&O
02/05/25 02/06/25 02/07/25
06:59 06:59 06:59
Intake Total 1200 / 1200 960 / 960
Balance 1200 / 1200 960 / 960
--- NOTE | 2025-02-06 12:31 | W.PN.UPDATE ---
Update Note
Progress Note Update
Seen and examined earlier today. Stable overall exam. Discussed with patient as well as her daughter and patient's at the bedside plan for today. Discussed technical aspects of left lower extremity arterial bypass. Discussed anticipated
outcomes/recovery. Discussed risks including but not limited to bleeding, infections, arterial injury/worsened or acute limb ischemia, restenoses, persistent limb threat. She understands all wishes to proceed.
--- NOTE | 2025-02-06 12:33 | W.SUR.PREOP ---
Pre-Operative Surgical Note
-
I have examined this patient prior to the performance of the scheduled procedure.
The patient's condition is unchanged from the time of the current History and
Physical and the patient is able to undergo the scheduled procedure.
[2025-02-06 15:39] LABS: Anti-Xa Qualitative Interp Present (Not Present); Anticoagulant Med Neutralizati Hepzyme (Not Performed); Hexagonal Phospholipid Confirm Not Performed s (<=7.9); Neutralized PTT-LA Ratio 0.91 (<=1.20); Neutralized dRVTT Screen Ratio Not Performed (<=1.20); PTT-LA Ratio >4.00 (<=1.20); Prothrombin Time 14.5 s (12.0-15.5); Thrombin Time >150.0 s (<=19.5); dRVTT 1.1 Mix Ratio Not Performed (<=1.20); dRVTT Confirmation Ratio Not Performed (<=1.20); dRVTT Screen Ratio 0.98 (<=1.20)
--- NOTE | 2025-02-06 15:39 | W.SUR.POST ---
Surgical Immediate Post Op
Note
Pre Op Diagnosis: PAD, ischemic rest pain
Post Op Diagnosis: same
Procedure Performed: Left lower extremity SFA to below knee popliteal artery bypass with PTFE
Primary Surgeon: Arnie
Assist: Riley CALI
Anesthesia: General
Estimated Blood Loss: 25cc
Fluids: See anesthesia flow sheet
Drains/Shunts: none
Specimens/Cultures: none
Doppler/Duplex/Angio (Y/N): Y
Complications: none
Operative Findings: Palpable left DP and PT pulses upon completion
[2025-02-06] MEDS: SUBLIMAZE 50 MCG IV ×2 (16:22→16:47)
[2025-02-06] MEDS: ZOFRAN 4 MG IV (16:22)
[2025-02-06 16:23] LABS: Hematocrit 34.2 % (37.0-47.0); Hemoglobin 11.8 g/dL (12.0-16.0); Mean Corp Hgb Conc. 34.5 g/dL (33.0-37.0); Mean Corpuscular Hgb 30.3 pg (27.0-31.0); Mean Corpuscular Volume 87.9 fL (81.0-99.0); Mean Platelet Volume 9.8 fL (7.4-10.4); Platelet Count 145 10^3/uL (130-400); Red Blood Cell Count 3.89 10^6/uL (4.20-5.40); Red Cell Dist. Width 13.3 % (11.5-14.5); White Blood Cell Count 18.1 10^3/uL (4.8-10.8)
[2025-02-06 16:31] LABS: PT 14.7 Sec (11.4-14.6)
[2025-02-06 16:32] LABS: APTT 26.6 Sec (23.4-35.0)
[2025-02-06 16:36] LABS: Blood Urea Nitrogen 11 mg/dl (7-17); Calcium 7.9 mg/dl (8.4-10.2); Carbon Dioxide 23 mmol/L (22-30); Chloride 104 mmol/L (98-107); Estimated Creatinine Clearance 64 ml/min; Glucose 148 mg/dl (70-99); Magnesium 2.2 mg/dl (1.6-2.3); Phosphorus 3.3 mg/dl (2.5-4.5); Potassium 4.3 mmol/L (3.5-5.1); Sodium 134 mmol/L (135-145); eGFR > 60.00
[2025-02-06] MEDS: COMPAZINE 5 MG IV (16:47)
--- NOTE | 2025-02-06 16:58 | OR.RPT ---
Operative Report
Operative Report
PROCEDURE DATE: 02/06/2025
Preoperative diagnosis:
1. Severe ischemic rest pain left lower extremity.
2. Concern for thromboembolic process.
Postoperative diagnosis: Same
Procedure:
1. Left superficial femoral artery to below the knee popliteal artery bypass with 6 mm [place] ringed Propaten graft.
2. Roby thrombectomy left superficial femoral artery.
Surgeon: Arnie
Blue Print Control Clerk: Gely Lin NP, required for all aspects of procedure including assistance with traction/countertraction, following of suture line, assistance with closure.
Complications: None
Anesthesia: General
Indications for procedure:
Patient with 10 days relatively acute onset of ischemic rest pain symptoms in the left foot. Findings on physical exam demonstrated definitive dependent rubor and elevation pallor. Significantly depressed ABIs. CT angiogram imaging had
demonstrated occlusion in the SFA and popliteal artery that appeared to be thromboembolic in nature. Cardiac workup was negative for any cardioembolic etiology. Hematology was consulted as well. Due to patient's symptoms, she was brought for
bypass. Vein conduit was marginal based on CT scan imaging and vein mapping ultrasound. I discussed exploration of the vein but potential for graft as well. Risk/benefits/alternatives also discussed. Patient understood all wished to proceed.
Description of procedure:
Patient was identified brought to the operating room placed on the table in supine position. After induction of anesthesia, I did assess the veins bilaterally greater saphenous veins with the ultrasound. As I had suspected based on my review of
the imaging, the veins were very small and I did not think usable. After the adequate administration of anesthesia she was prepped and draped in the standard surgical fashion. A standard preoperative timeout was undertaken and everybody was in
agreement the plan. A longitudinal incision was made in the proximal anterior thigh that was carried through skin subcutaneous tissue. I then used electrocautery to carried this through the crural fascia layer. The sartorius muscle was reflected
laterally and the superficial femoral artery could be palpated (pulsation) just deep and medial. I therefore carefully dissected on its anterior surface, and then continues to dissected away from surrounding structures taking great care to avoid
any injury to the structures. A vessel loop was passed around it proximally and distally. The artery was noted to be soft and pulsatile. Note, within this incision site I was able to identify the greater saphenous vein. However it was a very
small vein. I traced it proximally distally slightly, but it was very small throughout this course. I felt that this was not a usable vein.
At this point I made a longitudinal incision in the medial left calf about 1 fingerbreadth inferior to the tibia and the proximal segment. This was carried through skin subcutaneous tissue and through the crural fascia layer. The gastrocnemius
muscle was reflected posteriorly. The below the knee popliteal vein was identified and I carefully dissected medially to here and identified the popliteal artery. It was noted to be very soft. However it was a very small vessel. I had
appreciated on CT scan that it appeared small, but I thought that may be due to underfilling but was not sure. It now appeared that it was not due to underfilling that this was just a small vessel. I passed a vessel loop around it proximally and
distally after careful circumferential dissection proximally and distally. I listen with a Doppler and there is a good signal suggesting patency of the vessel as was indicated on CT scan imaging.
At this point I used a Max tunneler to create a subsartorial tunnel between the 2 arterial exposure sites. I then passed a [place] Propaten 6 mm ringed graft between the 2 incision sites. I gave the patient 5000's of intravenous heparin. Once
this had circulated for 3 minutes, I then tightened my double looped Vesseloops on the SFA proximally and distally. An arteriotomy was made with an 11 blade and extended using a Bowers scissor. There was no significant stenosis or heavy plaque at
this juncture in the artery. However there was some fatty tissue I noted in the artery. I could not tell if this was a typical plaque or what. However I was able to pull it out. Was a small amount which I sent for pathology. I then ran a
Roby catheter proximally to ensure no additional thrombus or tissue. I did not receive or retrieve any further. I had excellent inflow bleeding. I then ran the Roby distally, but it was hit a wall about 10 cm down. I could try to push it
through but I felt that this was chronic thrombus and I did not wish to dislodge or cause more problems and therefore I felt I would proceed with the bypass as planned. The graft was beveled and an end-to-side anastomosis was fashioned between the
graft and the superficial femoral artery using a running [place] CV 6 suture. Prior to completing and tying down my suture line I backbled and forward bled the [place] artery. I then completed and tied down my suture line. I then placed a graft clamp
and then released flow in the [place] system. There is excellent pulsatile flow into the graft. A couple [place] CV 6 [id number] sutures were placed along the suture line for hemostasis. I then packed this site and turned my attention to the
distal.
At this point I clamped the popliteal artery proximally and double looped and tightened my vessel loop distally. I made an arteriotomy with an 11 blade extended using a Bowers scissor. There was no significant plaque or stenosis in the lumen.
There was good backbleeding. At this point I trimmed and beveled the distal aspect of the graft. I had confirmed no kinking or twisting when I tunneled it through. I am now sewed an end-to-side anastomosis between the graft and the below the knee
popliteal artery using a running [place] CV 6 suture. Prior to completing and tying down my suture line I backbled the [place] vessels and then flushed out the graft. I then instilled heparinized saline and completed and tied down my suture line.
Next I released [place] artery clamps as well as the graft clamp. There was now excellent pulsatile flow into the popliteal artery distal to the graft. There was graft dependent flow when listening with the Doppler. On the foot I could palpate a
dorsalis pedis and posterior tibial pulse but I also listen with a Doppler and there was excellent significantly graft augmented flow in those arteries as well.
At this point is very satisfied. Complete hemostasis was meticulously achieved. Protamine was given reverse the heparin. Both incision sites were then closed in layers using 2-0 Vicryl deeper layers x 2 for both incisions. This was followed by
3-0 Vicryl deep dermal layer, followed by 4-0 Monocryl subcuticular stitch. Dermabond was applied to both sites. Dressings were also applied. The patient tolerated procedure well. All sponge, needle, instrument counts were correct at the end of
the case. The patient was transported to the recovery room in stable condition.
--- NOTE | 2025-02-06 17:15 | PTCARENOTE ---
Pt arrived from PACU via bed, monitored and with Oxygen nasal cannula 1 liter. Left radial arterial line transduced, calibrated and monitored with all ports patent and secured. Lungs CTA, poor inspiratory effort. Pulse ox 97% on 1 liter. Oral mucosa
dry, tolerate small sips of water. Hand off Doppler signal to right DP/PT pulses, with foot pale, cool w/poor capillary refill. Left foot warm, brisk capillary refill, and palpable DP pulses, Doppler PT pulses. Good movement and sensation
bilaterally. She was informed of the plan of care, the use of the call orcha, and to notify the RN if she has worsening pain in her feet or legs, or has numbness or tingling anywhere in her lower extremities. She verbalized her understanding.
Hypoactive BSX4. Safe environment maintained. Will continue to monitor.
[2025-02-06] MEDS: NSS 1000 IV (17:20)
[2025-02-06] MEDS: DILAUDID 0.5 MG IV ×2 (17:21→23:03)
[2025-02-06] MEDS: ROXICODONE 5 MG PO (17:46)
[2025-02-06] MEDS: OFIRMEV 100 IV (18:17)
--- NOTE | 2025-02-06 18:22 | PTCARENOTE ---
Clarified with Dr. Gaitan to start the Heparin at a continuous rate @500units/hr with no PTT assessment until tomorrow morning. Pt and her daughter Karen are aware of the plan of care.
[2025-02-06] MEDS: HEPARIN 25000 UNITS/250 ML IV (18:26)
[2025-02-06] MEDS: TOPROL XL 25 MG PO (20:55)
[2025-02-06] MEDS: XALATAN OPHTHALMIC SOLUTION 1 DROP BOTH EYES (21:45)
[2025-02-07] VITALS (16 sets, daily range): BP systolic 102–136; BP diastolic 46–95; PULSE 58; O2SAT 97; BMI 24.7
--- NOTE | 2025-02-07 02:24 | PTCARENOTE ---
Pt received at 19:00, handoff neurovascular check completed with previous RN. Pt Ox3, pleasant. During handoff, pt c/o pain to L medial knee, 3-4/10, states much improved and tolerable. SR to sinus liam, high 50s-70s. L radial a-line transduced and
correlating with cuff pressure. RLE cool/pale, cap refill >2, pulses present with doppler. LLE warm/pink, cap refill <2, DP palpable, PT present with doppler. RA, breath sounds clear. +BS, no BM. [place] in place, yellow urine. L knee and groin
aquacel dressings CDI.
Neurovascular checks unchanged. Safe environment maintained, call rocha within reach.
[2025-02-07 04:38] LABS: % Basophils 0.3 % (0-2); % Eosinophils 0.2 % (0-6); % Immature Granulocytes 0.5 % (0-0.5); % Lymphocytes 33.9 % (20.5-51.1); % Monocytes 9.2 % (1.7-9.3); % Neutrophils 55.9 % (42.2-75.2); Absolute Immature Granulocytes 0.1 10^3/uL (0-0.05); Absolute Lymphocytes 3.3 10^3/uL (1.2-3.4); Absolute Monocytes 0.9 10^3/uL (0.1-0.6); Absolute Neutrophils 5.5 10^3/uL (1.4-6.5); Hematocrit 32.6 % (37.0-47.0); Mean Corp Hgb Conc. 33.7 g/dL (33.0-37.0); Mean Corpuscular Hgb 29.7 pg (27.0-31.0); Mean Corpuscular Volume 88.1 fL (81.0-99.0); Mean Platelet Volume 10.2 fL (7.4-10.4); Nucleated Red Blood Cells % 0 %; Platelet Count 148 10^3/uL (130-400); Red Cell Dist. Width 13.4 % (11.5-14.5); White Blood Cell Count 9.8 10^3/uL (4.8-10.8)
[2025-02-07 04:52] LABS: PT 13.7 Sec (11.4-14.6)
[2025-02-07 04:53] LABS: APTT 36.6 Sec (23.4-35.0)
[2025-02-07 04:58] LABS: Blood Urea Nitrogen 9 mg/dl (7-17); Calcium 7.6 mg/dl (8.4-10.2); Carbon Dioxide 25 mmol/L (22-30); Chloride 106 mmol/L (98-107); Estimated Creatinine Clearance 64 ml/min; Glucose 101 mg/dl (70-99); Potassium 4.4 mmol/L (3.5-5.1); Sodium 134 mmol/L (135-145); eGFR > 60.00
[2025-02-07] MEDS: NSS 1000 IV (06:13)
--- NOTE | 2025-02-07 07:18 | CON.INTV ---
Consultation
Consultation Request
Date/Time Consultation Requested: 02/06/25
Date/Time Consultation Performed: 02/07/25
Performing Provider: Mary
Reason for Consultation: ICU
Medical History
-
History of Present Illness:
Patient is a 79-year-old female with previous history of osteoporosis, CAD, hyperlipidemia sent in from the vascular office with findings of bilateral SFA occlusion on outpatient CTA. She did noticed pain in her toes with discoloration which
started approximately 2 weeks ago. She was admitted to [facility] 02/01/25 and had preoperative workup done. Underwent left superficial femoral artery below the knee popliteal artery bypass and thrombectomy of the left superficial femoral artery on
02/06/2025, tolerated procedure well. She is postopeartively transferred to ICU for further management.
Past Medical History
Past Medical History: Other (see list below)
Family History
Family History: Reviewed & Not Pertinent
Allergies / Home Medications
Allergies
Allergy/AdvReac Type Severity Reaction Status Date / Time
codeine Allergy anxiety- Verified 02/06/25 16:42
verified
with
daughter-
not true
allergy
Penicillins Allergy Swelling Verified 02/06/25 16:42
Home Medications
�Medication �Instructions �Recorded �Confirmed �Last Taken �Type
alendronate 70 mg tablet 70 mg PO PEREZ Osteoperosis 02/01/25 02/01/25 01/27/25 History
calcium carbonate 500 mg PO DAILY Supplement 02/01/25 02/01/25 01/31/25 History
cholecalciferol (vitamin D3) 50 50 mcg PO DAILY Supplement 02/01/25 02/01/25 01/31/25 History
mcg (2,000 unit) tablet (Vitamin
D3)
clopidogrel 75 mg tablet 75 mg PO DAILY Blood Clot 02/01/25 02/01/25 02/01/25 History
Prevention/Tx
latanoprost 0.005 % eye drops 1 drp BOTH EYES HS Eye Condition 02/01/25 02/01/25 01/31/25 History
rosuvastatin 5 mg tablet 5 mg PO DAILY High Cholesterol 02/01/25 02/01/25 01/31/25 History
Review of Systems
-
History Source: Patient
All other systems: Negative unless noted
Vitals / Labs / Diagnostic Testing
Vital Signs
Temp Pulse Resp BP Pulse Ox
97.5 F 58 10 119/52 100
02/06/25 17:15 02/07/25 02:15 02/07/25 02:15 02/07/25 00:00 02/06/25 22:50
Lab Data
02/07/25 04:14
02/07/25 04:14
Laboratory Results
02/06/25 02/06/25 02/07/25
07:43 16:13 04:14
PT 13.1 14.7 H 13.7
INR 0.94 1.10 1.00
APTT 31.1 26.6 36.6 H
Diagnostic Testing:
Physical Exam
-
HEENT: Normocephalic, Anicteric and Moist Mucous Membranes
Cardiovascular: S1/S2 and Regular Rhythm
Respiratory: Clear and Non-Labored Respirations
GI: Soft, Non Distended and Non Tender
Neurology: Awake, Alert, Oriented and No Motor Deficits
Skin: Warm, Dry and Good Color
General: Comfortable and Other (NAD)
Assessment
-
Patient is a 79-year-old female with previous history of osteoporosis, CAD, hyperlipidemia sent in from the vascular office with findings of bilateral SFA occlusion on outpatient CTA. She did noticed pain in her toes with discoloration which
started approximately 2 weeks ago. She was admitted to [facility] 02/01/25 and had preoperative workup done. Underwent left superficial femoral artery below the knee popliteal artery bypass and thrombectomy of the left superficial femoral artery on
02/06/2025, tolerated procedure well. She is postopeartively transferred to ICU for further management.
Critical ischemia of LE 2/2 b/l SFA occlusion s/p Left superficial femoral artery to below the knee popliteal artery bypass with 6 mm [place] ringed Propaten graft/Roby thrombectomy left superficial femoral artery 02/06/25
Irregular HR-PACs
Leukocytosis-likely reactive/postop
Mild postoperative anemia
Mild hyponatremia
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
Osteoporosis
Glaucoma
HLD
HTN
Former smoker
Seasonal allergic rhinitis due to pollen
Vit D Def
Plan
Patient is s/p fem bypass/thrombectomy by vascular surgery service, POD #1
Continue observation following procedure
Follow neurovascular checks per protocol
PVX, betablocker and statin on board
Follow BP monitoring and parameters as set by primary team
Cardiac history noted--HTN
Resume home meds
Monitor on telemetry
Pain control per protocol
RASS goal 0
No prior history of pulmonary disease, was a former smoker, quit >10 years ago
No prior PFTs/chest imaging for review
Encouraged IS
Diet advancement per protocol
Aspiration precautions
GI prophylaxis if indicated for stress ulcer prevention in the critically ill
Creat at baseline, follow UO
Critical I/Os
Void trials
Replete electrolytes as needed
No signs/symptoms suspicious for infectious etiology at this time
Will observe off antibiotics for now
Follow temperatures/CBC
Hb and platelets postoperatively stable
DVT prophylaxis recommended if not contraindicated based on procedural history -- heparin SQ and mechanical SCDs
Encouraged OOB/PT/OT/ambulation once cleared by surgical team
We will follow
Diagnostic Data
Chest X-Ray:
CT Scan:
Echo: 02/04/25- Normal biventricular size and systolic function without regional wall motion abnormality. Estimated LVEF 55%. Aortic sclerosis without stenosis. Mild aortic regurgitation. No prior study available for comparison.
PFT's:
Reports and relevant images were personally reviewed.
Critical Care time 50 mins -- this includes review of history, physical exam, medications, hemodynamic/O2 parameters, laboratory data, imaging and discussions with care team, pharmacy, nursing and patient.
--- NOTE | 2025-02-07 07:21 | W.PN.VS ---
Today's Communication / Plan
-
Seen and assessed with Dr Gaitan
Assessment/Plan
-
POD 1 Left superficial femoral artery to below the knee popliteal artery bypass with 6 mm [place] ringed Propaten graft. Roby thrombectomy left superficial femoral artery.
Plan:
-DC aquilino
-DC IVF
-Diet
-PO/OT
-DC cruz
-Increase heparin to protocol
-Downgrade to tele later today
Subjective Data
-
Date of Service: February 07, 2025
Pt seen at bedside this am with Dr Gaitan. Pt offers no complaints at this time. No events overnight.
Objective Data
-
Vital Signs
Temp Pulse Resp BP Pulse Ox
97.5 F 58 10 119/52 100
02/06/25 17:15 02/07/25 02:15 02/07/25 02:15 02/07/25 00:00 02/06/25 22:50
Intake and Output
02/06/25 02/07/25 02/08/25
06:59 06:59 06:59
Intake Total 960 / 960 1400 / 1400
Output Total 1190 / 1190
Balance 960 / 960 210 / 210
Intake:
Oral fluids 960 / 960 200 / 200
IV fluids (Total) 1100 / 1100
Heparin 60 / 60
Nss 1,000 ml @ 80 mls/hr IV . 1040 / 1040
[id number] JINA Rx#:[id number]
IV piggybacks 100 / 100
Output:
Urine, Cruz 1190 / 1190
Other:
Number of approximated MODERATE 3
amounts of urine
Lab Results
02/07/25 04:14
02/07/25 04:14
Calcium 7.6 mg/dl (8.4-10.2) L 02/07/25 04:14
Phosphorus 3.3 mg/dl (2.5-4.5) 02/06/25 16:13
Magnesium 2.2 mg/dl (1.6-2.3) 02/06/25 16:13
Total Bilirubin 0.9 mg/dl (0.2-1.3) 02/02/25 09:06
AST 24 U/L (14-36) 02/02/25 09:06
ALT 19 U/L (0-35) 02/02/25 09:06
Alkaline Phosphatase 78 U/L (38-126) 02/02/25 09:06
Total Protein 6.5 g/dl (6.3-8.2) 02/02/25 09:06
Albumin 4.1 g/dl (3.5-5.0) 02/02/25 09:06
Physical Exam
-
AAOx3
No tachypnea on 2L NC
No tachycardia
Abd soft, NT
Leg dressings c/d/i, soft, no edema or drainage noted
foot warm and pink, palpable pulses
--- NOTE | 2025-02-07 07:55 | W.PN.CD ---
Today's Communication / Plan
-
continue Plavix, and post op heparin drip
trend tele
Impression / Plan
-
I/P: 79F with hypertension, dyslipidemia, and osteoporosis who was referred from the vascular surgery office after concerns of bilateral SFA occlusion on an outpatient CTA
Outpatient avionic technician: None
PAD with SFA occlusion: severe, requiring hospitalization s/p OR 02/06/25
-pre op nuclear stress: no ischemia
-1. Left superficial femoral artery to below the knee popliteal artery bypass with 6 mm [place] ringed Propaten graft.
-2. Roby thrombectomy left superficial femoral artery.
- On clopidogrel and heparin drip post op
-heparin drip is a high risk medication, requiring monitoring of Hgb
PAC's: now on Toprol XL, continue
Hypertension: cont Toprol XL
HLD, on rosuvastatin 5 mg admission, LDL 103, increased to 20 mg to target LDL under 55
Mild AR
-with preserved normal LVEF 55% on echo 02/04
Physical Exam
Vital Signs/Labs
Vital Signs
Temp Pulse Resp BP Pulse Ox
97.5 F 58 10 119/52 100
02/06/25 17:15 02/07/25 02:15 02/07/25 02:15 02/07/25 00:00 02/06/25 22:50
02/06/25 02/07/25 02/08/25
06:59 06:59 06:59
Actual Weight 65.317 kg
02/07/25 04:14
02/07/25 04:14
PT 13.7 Sec (11.4-14.6) 02/07/25 04:14
INR 1.00 02/07/25 04:14
APTT 36.6 Sec (23.4-35.0) H 02/07/25 04:14
Magnesium 2.2 mg/dl (1.6-2.3) 02/06/25 16:13
Triglycerides 145 mg/dl (10-149) 02/02/25 09:06
LDL Cholesterol, Calc 103 mg/dl 02/02/25 09:06
VLDL Cholesterol, Calc 29 mg/dl (0-30) 02/02/25 09:06
HDL Cholesterol 61 mg/dl 02/02/25 09:06
Physical Exam
Constitutional: No acute distress and Comfortable
EENT: Moist mucous membranes
Cardiovascular: Rhythm & rate is regular, Pedal edema is absent, JVD pressure is normal and Systolic murmur absent
Respiratory: Respiratory effort normal and Lungs clear to auscul.
Neuro/Psych: AO x 3
Data Reviewed
-
Date of Service: February 07, 2025
EKG: Other (Tele: SB 55-43)
Labs: Labs Reviewed by me
[2025-02-07] MEDS: HEPARIN 25000 UNITS/250 ML IV (08:15)
[2025-02-07] MEDS: TOPROL XL 25 MG PO ×2 (08:23→21:04)
[2025-02-07] MEDS: CRESTOR 20 MG PO (08:24)
[2025-02-07] MEDS: PLAVIX 75 MG PO (08:24)
[2025-02-07] MEDS: TYLENOL 650 MG PO ×4 (08:24→22:56)
--- NOTE | 2025-02-07 09:28 | W.PN.UPDATE ---
Update Note
Progress Note Update
critical ischemia of LE 2/2 b/l SFA occlusion -on heparin gtt -management per vas surgery
-02/06 s/p Left superficial femoral artery to below the knee popliteal artery bypass with 6 mm [place] ringed Propaten graft. Roby thrombectomy left superficial femoral artery.
Arterial thrombophilia evaluation
-anticardiolipin antibody, beta 2 glycoprotein, and lupus anticoagulant negative,
-prothrombin gene mutation pending
--- NOTE | 2025-02-07 09:44 | PN.CDI ---
CDI
- -
CDI:
Physician Documentation Request
Admit Date: 02/01/25 17:55
Dear Doctor Espinoza,
Please review the following and provide your response in the progress notes.
Clinical Indicators:
02/06 S/P Procedure:
#...Left superficial femoral artery to below the knee popliteal artery bypass with 6 mm [place] ringed Propaten graft.
#...Roby thrombectomy left superficial femoral artery.
Laboratory Tests
02/01/25 02/02/25 02/03/25
12:18 09:06 07:45
Hgb 13.7 14.3 13.2
02/04/25 02/05/25 02/06/25
12:20 06:44 07:43
Hgb 14.5 13.5 13.1
02/06/25 02/07/25
16:13 04:14
Hgb 11.8 L 11.0 L
Based on the above and your clinical assessment, please clarify the condition/diagnosis evaluated, monitored and/or treated?
Acute blood loss anemia
Abnormal lab value, clinically insignificant
Other(please specify)
Use of terms such as suspected, likely, concern for, or probable (associated with a specific diagnosis that is being evaluated, monitored, or treated as if it exists) are acceptable and can be coded in the inpatient setting, when documented at the
time of discharge.
Thank you,
Margie Cartwright RN BSN CCDS
CDI Specialist
Please contact via tiger text
Please use your independent medical judgment in providing your response.
[2025-02-07] MEDS: SENOKOT-S 1 TABLET PO (10:46)
[2025-02-07] MEDS: ROXICODONE 5 MG PO (10:46)
--- NOTE | 2025-02-07 12:11 | W.PN.HOSP.TC ---
Today's Communication/Plan
-
Monitor vital signs see plan
Continue with vascular checks per vascular surgery
No objection for transfer to the floor later today if okay with vascular surgery
Voiding trial
Continue with Plavix, heparin drip
Assessment / Plan
Assessment / Plan
79yo F with osteoporosis, HLD, CAD sent from the vascular office with findings of b/l SFA occlusion on outpatient CTA. pending angiogram by Vascular on 02/06/25. Cardiology for Echo and stress test on 02/04/25 for risk stratification
A/P:
#concern for critical ischemia of LE 2/2 b/l SFA occlusion
cw Heparin drip per vascular
Vasc Sx for mgmt
PACs, now on Toprol-XL
Echo 02/04 with preserved EF, no wall motion abnormality. Stress test also negative
02/06 s/p Left superficial femoral artery to below the knee popliteal artery bypass with 6 mm [place] ringed Propaten graft. Roby thrombectomy left superficial femoral artery. Postop transferred to ICU for further observation. Magdi KHAN'd, voiding
trial. Vascular checks per vascular surgery. No objection to transfer to the floor later today if okay with vascular surgery
Vascular surgery following
cont Plavix, heparin
Will need w/u for thrombophilia - hematology following.. Anticardiolipin antibody negative
Anemia likely hemodilutional
Monitor
#Osteoporosis
#Glaucoma
#HLD
cont home meds
DVT ppx heparin drip
Full code
General: No Apparent Distress
HEENT: Normocephalic
Respiratory: Clear to Auscultation
Cardiac: Regular Rhythm
Genito-urinary: No Costovertebral Tender
Musculoskeletal: No Edema
Neuro: Awake, Alert, Oriented and AO x 3
Psych: Calm
Anticipated Discharge: 24 - 48 hours
Subjective/Interval History
-
Date of Service: February 07, 2025
Denies nausea
Objective Data
-
Labs:
Laboratory Results
02/07/25 02/07/25 02/07/25
04:14 07:47 14:15
WBC 9.8
Hgb 11.0 L
Hct 32.6 L
Plt Count 148
PT 13.7
INR 1.00
APTT 36.6 H 37.0 H Pending
Sodium 134 L
Potassium 4.4
Chloride 106
Carbon Dioxide 25
BUN 9
Creatinine 0.4 L
Glucose 101 H
Calcium 7.6 L
Vital Signs:
Vital Signs
Temp Pulse Resp BP Pulse Ox
99.4 F 58 23 102/79 97
02/07/25 08:25 02/07/25 10:01 02/07/25 10:01 02/07/25 10:01 02/07/25 07:45
I&O
02/06/25 02/07/25 02/08/25
06:59 06:59 06:59
Intake Total 960 / 960 1485 / 1485 469 / 469
Output Total 1240 / 1240 100 / 100
Balance 960 / 960 245 / 245 369 / 369
[2025-02-07 13:16] LABS: APTT 129.7 Sec (23.4-35.0)
--- NOTE | 2025-02-07 14:07 | PTCARENOTE ---
Pt and her aware of the plan of care regarding bladder scan 1530. She was advised to increase her fluid intake.
--- NOTE | 2025-02-07 18:33 | PTCARENOTE ---
Bladder scanned with a different bladder scan machine. She has pressure when placing the probe over her bladder and also now has the sensation to have a BM. She was assisted to the BR.
--- NOTE | 2025-02-07 18:46 | PTCARENOTE ---
She was able to void in the BR and expelled flatus. Post void residual 260ml's.
--- NOTE | 2025-02-07 18:56 | PTCARENOTE ---
She stated her last BM was prior to going to surgery yesterday
[2025-02-07] MEDS: XALATAN OPHTHALMIC SOLUTION 1 DROP BOTH EYES (21:04)
--- NOTE | 2025-02-07 21:09 | PTCARENOTE ---
Assumed care of pt at 1900. Pt is A/O x4, pleasant and cooperative with care. Pt denies pain while lying still in bed, reports pain to LLE with weight--bearing/movement. Able to ambulate to BR with x1 assist. Neurovascular checks ongoing Q4 hours,
see flowsheet for details. Heparin drip infusing, see worklist for details, PTT drawn at approx 2049, result currently pending. SR with PACs on monitor, occasionally SB into the 50s. See nursing shift assessment flowsheet for full physical
assessment details. Call rocha and personal items within reach.
[2025-02-07 21:22] LABS: APTT 148.6 Sec (23.4-35.0)
[2025-02-08] VITALS (10 sets, daily range): BP systolic 101–147; BP diastolic 50–88; BMI 24.6
--- NOTE | 2025-02-08 01:00 | PTCARENOTE ---
Midnight assessment unchanged, neurovascular assessment unchanged. Medicated with PRN Tylenol for mild pain at approx 2300, see EMAR. Has ambulated to BR with standby assistance and rolling walker several times this shift.
[2025-02-08] MEDS: ROXICODONE 5 MG PO ×2 (01:55→08:28)
[2025-02-08] MEDS: HEPARIN 25000 UNITS/250 ML IV (03:52)
[2025-02-08 05:18] LABS: % Basophils 0.4 % (0-2); % Eosinophils 0.9 % (0-6); % Immature Granulocytes 0.5 % (0-0.5); % Lymphocytes 24.4 % (20.5-51.1); % Monocytes 6.3 % (1.7-9.3); % Neutrophils 67.5 % (42.2-75.2); Absolute Basophils 0.1 10^3/uL (0-0.2); Absolute Eosinophils 0.1 10^3/uL (0-0.7); Absolute Immature Granulocytes 0.1 10^3/uL (0-0.05); Absolute Lymphocytes 3.2 10^3/uL (1.2-3.4); Absolute Monocytes 0.8 10^3/uL (0.1-0.6); Absolute Neutrophils 8.9 10^3/uL (1.4-6.5); Hematocrit 32.4 % (37.0-47.0); Hemoglobin 10.9 g/dL (12.0-16.0); Mean Corp Hgb Conc. 33.6 g/dL (33.0-37.0); Mean Corpuscular Hgb 29.9 pg (27.0-31.0); Mean Corpuscular Volume 88.8 fL (81.0-99.0); Mean Platelet Volume 10.1 fL (7.4-10.4); Nucleated Red Blood Cells % 0 %; Platelet Count 146 10^3/uL (130-400); Red Blood Cell Count 3.65 10^6/uL (4.20-5.40); Red Cell Dist. Width 13.2 % (11.5-14.5); White Blood Cell Count 13.2 10^3/uL (4.8-10.8)
--- NOTE | 2025-02-08 05:20 | PTCARENOTE ---
Physical and neurovascular assessments unchanged. Medicated with PRN Oxycodone shortly before 0200 for 'burning' pain to medial left thigh, pt reported relief upon pain reassessment. Continues on heparin drip. Sleeping between care.
[2025-02-08 05:28] LABS: APTT 87.3 Sec (23.4-35.0)
[2025-02-08 06:07] LABS: Blood Urea Nitrogen 8 mg/dl (7-17); Carbon Dioxide 24 mmol/L (22-30); Chloride 103 mmol/L (98-107); Estimated Creatinine Clearance 64 ml/min; Glucose 116 mg/dl (70-99); Potassium 4.2 mmol/L (3.5-5.1); Sodium 133 mmol/L (135-145); eGFR > 60.00
--- NOTE | 2025-02-08 07:30 | W.PN.INTV ---
Today's Communication / Plan
Recommendations
Doing well, remains stable off pressors
Encouraged OOB, PT/ambulation
Transferred to tele, discharge planning possibly per team
We will sign off at this time, pls call with questions
Assessment
-
Patient is a 79-year-old female with previous history of osteoporosis, CAD, hyperlipidemia sent in from the vascular office with findings of bilateral SFA occlusion on outpatient CTA. She did noticed pain in her toes with discoloration which
started approximately 2 weeks ago. She was admitted to [facility] 02/01/25 and had preoperative workup done. Underwent left superficial femoral artery below the knee popliteal artery bypass and thrombectomy of the left superficial femoral artery on
02/06/2025, tolerated procedure well. She is postopeartively transferred to ICU for further management.
Critical ischemia of LE 2/2 b/l SFA occlusion s/p Left superficial femoral artery to below the knee popliteal artery bypass with 6 mm [place] ringed Propaten graft/Roby thrombectomy left superficial femoral artery 02/06/25
Irregular HR-PACs
Leukocytosis-likely reactive/postop
Mild postoperative anemia
Mild hyponatremia
Conditions present INSERTER
Osteoporosis
Glaucoma
HLD
HTN
Former smoker
Seasonal allergic rhinitis due to pollen
Vit D Def
Plan
Patient is s/p fem bypass/thrombectomy by vascular surgery service, POD #2
Continue observation following procedure
Follow neurovascular checks per protocol
PVX, betablocker and statin on board
Follow BP monitoring and parameters as set by primary team
Cardiac history noted--HTN
Resume home meds
Monitor on telemetry
Pain control per protocol
RASS goal 0
No prior history of pulmonary disease, was a former smoker, quit >10 years ago
No prior PFTs/chest imaging for review
Encouraged IS
Diet advancement per protocol
Aspiration precautions
GI prophylaxis if indicated for stress ulcer prevention in the critically ill
Creat at baseline, follow UO
Critical I/Os
Void trials
Replete electrolytes as needed
No signs/symptoms suspicious for infectious etiology at this time
Will observe off antibiotics for now
Follow temperatures/CBC
Hb and platelets postoperatively stable
DVT prophylaxis recommended if not contraindicated based on procedural history -- heparin SQ and mechanical SCDs
Encouraged OOB/PT/OT/ambulation once cleared by surgical team
Discharge planning per team
Diagnostic Data
Chest X-Ray:
CT Scan:
Echo: 02/04/25- Normal biventricular size and systolic function without regional wall motion abnormality. Estimated LVEF 55%. Aortic sclerosis without stenosis. Mild aortic regurgitation. No prior study available for comparison.
PFT's:
Reports and relevant images were personally reviewed.
Critical Care time 31 mins -- this includes review of history, physical exam, medications, hemodynamic/O2 parameters, laboratory data, imaging and discussions with care team, pharmacy, nursing and patient.
Subjective Dataa
Subjective Data
Date of Service:
Date of Service: February 08, 2025
Chief Complaint: Plc Technician Follow Up
Subjective:
Doing well today, no acute events ON
Stable on RA
No new complaints
Objective Data
Data Reviewed
Vital Signs / I&O / Oxygen:
Vital Signs
Temp Pulse Resp BP Pulse Ox
97.6 F 63 20 143/50 98
02/08/25 07:26 02/08/25 06:34 02/08/25 06:34 02/08/25 06:34 02/07/25 19:35
Intake and Output
02/07/25 02/08/25 02/09/25
06:59 06:59 06:59
Intake Total 1485 / 1485 1467 / 1467
Output Total 1240 / 1240 850 / 850
Balance 245 / 245 617 / 617
SaO2 98
Nasal Cannula flow liters per 1
minute
Physical Exam
General: Comfortable and Other (NAD)
HEENT: Normocephalic, Anicteric and Moist Mucous Membranes
Cardiovascular: S1-S2 and Regular Rhythm
Respiratory: Clear and Non-Labored Respirations
GI: Soft, Non Distended and Non Tender
Neurology: Awake, Alert, Oriented and No Motor Deficits
Skin: Warm, Dry and Good Color
Labs/Micro/Reports
Lab Data
02/08/25 05:05
02/08/25 05:05
Laboratory Results
02/07/25 02/07/25 02/07/25
07:47 12:48 14:15
APTT 37.0 H 129.7 H Cancelled
02/07/25 02/07/25 02/08/25
19:30 20:52 05:05
APTT Cancelled 148.6 H 87.3 H
02/08/25
06:00
APTT Cancelled
[2025-02-08] MEDS: PLAVIX 75 MG PO (08:25)
[2025-02-08] MEDS: PROTONIX 40 MG PO (08:25)
[2025-02-08] MEDS: CRESTOR 20 MG PO (08:25)
[2025-02-08] MEDS: TOPROL XL 25 MG PO (08:25)
--- NOTE | 2025-02-08 08:26 | PN.CDI ---
CDI
- -
CDI:
Physician Documentation Request
Admit Date: 02/01/25 17:55
Dear Doctor Espinoza,
Please review the following and provide your response in the progress notes.
Clinical Indicators:
Laboratory Tests
02/06/25 02/07/25 02/08/25
16:13 04:14 05:05
Sodium 134 L 134 L 133 L
Based on the above and your clinical assessment, please clarify the condition/diagnosis, that supports the above abnormalities and additional evaluation, monitoring and/or treatment rendered:
Hyponatremia
Abnormal lab value, clinically insignificant
Other(please specify)
Use of terms such as suspected, likely, concern for, or probable (associated with a specific diagnosis that is being evaluated, monitored, or treated as if it exists) are acceptable and can be coded in the inpatient setting, when documented at the
time of discharge.
Thank you,
Margie Cartwright RN BSN CCDS
CDI Specialist
Please contact via tiger text
Please use your independent medical judgment in providing your response.
--- NOTE | 2025-02-08 08:50 | W.PN.VS ---
Addendum entered and electronically signed by Francis Fairbanks III, MD 02/08/25 11:03:
This patient was seen and examined in collaboration with VIRAJ Horvath. I agree with the history and physical exam as well as the assessment and plan.
Signed:
Francis Fairbanks III, MD
Vascular Surgery
[facility]
Addendum entered and electronically signed by VIRAJ Horvath 02/08/25 08:54:
Additionally will stop Plavix
Original Note:
Today's Communication / Plan
-
Seen and assessed with Dr. Fairbanks
Assessment/Plan
-
POD 2 left superficial femoral artery to below the knee popliteal artery bypass with 6 mm [place] ringed Propaten graft. Roby thrombectomy left superficial femoral artery.
Plan:
-Transition from heparin to Xarelto + ASA
-Okay for discharge from vascular standpoint
-Discussed plans with cardiology, pt will f/u with Dr Diaz as outpt
Subjective Data
-
Date of Service: February 08, 2025
Patient seen at bedside this a.m. with Dr. Fairbanks. Patient offers no complaints at this time. Patient eager to go home. No events overnight.
Objective Data
-
Vital Signs
Temp Pulse Resp BP Pulse Ox
97.6 F 68 20 110/54 98
02/08/25 07:26 02/08/25 08:25 02/08/25 06:34 02/08/25 08:25 02/07/25 19:35
Intake and Output
02/07/25 02/08/25 02/09/25
06:59 06:59 06:59
Intake Total 1485 / 1485 1467 / 1467
Output Total 1240 / 1240 850 / 850
Balance 245 / 245 617 / 617
Intake:
Oral fluids 200 / 200 1180 / 1180
IV fluids (Total) 1185 / 1185 287 / 287
Heparin 65 / 65 207 / 207
Nss 1,000 ml @ 80 mls/hr IV . 1119 80 / 80
[id number] JINA Rx#:[id number]
IV piggybacks 100 / 100
Output:
Urine, Fairbanks 1240 / 1240 100 / 100
Urine, Voided 750 / 750
Other:
Number of approximated SMALL 1
amounts of urine
Number of approximated MODERATE 1
amounts of urine
Lab Results
02/08/25 05:05
02/08/25 05:05
Calcium 8.0 mg/dl (8.4-10.2) L 02/08/25 05:05
Phosphorus 3.3 mg/dl (2.5-4.5) 02/06/25 16:13
Magnesium 2.2 mg/dl (1.6-2.3) 02/06/25 16:13
Total Bilirubin 0.9 mg/dl (0.2-1.3) 02/02/25 09:06
AST 24 U/L (14-36) 02/02/25 09:06
ALT 19 U/L (0-35) 02/02/25 09:06
Alkaline Phosphatase 78 U/L (38-126) 02/02/25 09:06
Total Protein 6.5 g/dl (6.3-8.2) 02/02/25 09:06
Albumin 4.1 g/dl (3.5-5.0) 02/02/25 09:06
Physical Exam
-
AAOx3
No tachypnea on RA
No tachycardia
Abd soft, NT
Leg dressings removed, incisional sites well-approximated, compartments soft, no edema or drainage noted
foot warm and pink, palpable pulses
--- NOTE | 2025-02-08 08:52 | W.PN.CD ---
Today's Communication / Plan
-
discussed with vascular surgery: plan will be to transition heparin and Plavix to ASA 81mg and OAC
cont crestor 20mg daily and Toprol XL 25mg daily
dicharge planning
please call us with additional questions
Impression / Plan
-
I/P: 79F with hypertension, dyslipidemia, and osteoporosis who was referred from the vascular surgery office after concerns of bilateral SFA occlusion on an outpatient CTA
Outpatient staff command and control officer: None
PAD with SFA occlusion: severe, requiring hospitalization s/p OR 02/06/25
-pre op nuclear stress: no ischemia
-1. Left superficial femoral artery to below the knee popliteal artery bypass with 6 mm [place] ringed Propaten graft.
-2. Roby thrombectomy left superficial femoral artery.
-discussed with vascular surgery: plan will be to transition to ASA 81mg and OAC
PAC's; 4 beats NSVT: now on Toprol XL, continue
-echo and stress were normal
Hypertension: cont Toprol XL 25mg daily
HLD, on rosuvastatin 5 mg admission, LDL 103, increased to 20 mg to target LDL under 55
Mild AR
-with preserved normal LVEF 55% on echo 02/04
Physical Exam
Vital Signs/Labs
Vital Signs
Temp Pulse Resp BP Pulse Ox
97.6 F 68 20 110/54 98
02/08/25 07:26 02/08/25 08:25 02/08/25 06:34 02/08/25 08:25 02/07/25 19:35
02/07/25 02/08/25 02/09/25
06:59 06:59 06:59
Actual Weight 65.317 kg 65 kg
02/08/25 05:05
02/08/25 05:05
PT 13.7 Sec (11.4-14.6) 02/07/25 04:14
INR 1.00 02/07/25 04:14
APTT Cancelled 02/08/25 06:00
Magnesium 2.2 mg/dl (1.6-2.3) 02/06/25 16:13
Triglycerides 145 mg/dl (10-149) 02/02/25 09:06
LDL Cholesterol, Calc 103 mg/dl 02/02/25 09:06
VLDL Cholesterol, Calc 29 mg/dl (0-30) 02/02/25 09:06
HDL Cholesterol 61 mg/dl 02/02/25 09:06
Physical Exam
Constitutional: No acute distress
Cardiovascular: Rhythm & rate is regular, Pedal edema is absent and JVD pressure is normal
Respiratory: Respiratory effort normal and Lungs clear to auscul.
Neuro/Psych: AO x 3
Data Reviewed
-
Date of Service: February 08, 2025
EKG: Other (Tele: SR/SB, 4 beats NSVT)
Labs: Labs Reviewed by me
--- NOTE | 2025-02-08 09:47 | CM ---
Addendum entered by Aditya Head 02/08/25 14:05:
Discharge order noted. Both pt and her family are aware, expressed their agreement.
Per MD, pt will have Xarelto medication. Free 30 days trial coupon given to the pt and her family.
Please fax discharge instructions to [facility] at [phone]
D/C plan: home with [facility] and family support. to transport
Original Note:
CM following re: discharge planning.
Reviewed pt's chart, met with pt and pt's at bedside.
According to MD pt most likely will be discharged home today. Both pt and her are aware, expressed their agreement. IMM reviewed, placed on chart, pt has a copy. pt's stated he will transport pt home.
PT and OT evaluations noted- home PT/OT recommended. CM discussed it with the pt and pt preferred [facility] stating her is with [facility]. A referral to [facility] made.
Medications santana checked:
1. Eliquis 5 mg BID: 30 days - $145.48; 90 days: $405.43
2. Xarelto 20 mg Daily: 30 days - $143.51; 90 days- $399.92
CM will give 30 day free coupon for a chosen medication.
Please fax discharge instructions to [facility] at [phone]
D/C plan: home with [facility] and family support. to transport.
[2025-02-08] MEDS: XARELTO 20 MG PO (11:02)
[2025-02-08] MEDS: LOW STRENGTH ASPIRIN 81 MG PO (11:02)
--- NOTE | 2025-02-08 12:35 | W.PN.HOSP.TC ---
Today's Communication/Plan
-
Monitor vitals
See plan
Discussed with vascular surgery and cardiology, okay for discharge home
Continue Xarelto, aspirin
Time of discharge 38 minutes
Assessment / Plan
Assessment / Plan
79yo F with osteoporosis, HLD, CAD sent from the vascular office with findings of b/l SFA occlusion on outpatient CTA. pending angiogram by Vascular on 02/06/25. Cardiology for Echo and stress test on 02/04/25 for risk stratification
A/P:
#concern for critical ischemia of LE 2/2 b/l SFA occlusion
cw Heparin drip per vascular
Vasc Sx for mgmt
PACs, now on Toprol-XL
Echo 02/04 with preserved EF, no wall motion abnormality. Stress test also negative
02/06 s/p Left superficial femoral artery to below the knee popliteal artery bypass with 6 mm [place] ringed Propaten graft. Roby thrombectomy left superficial femoral artery. Postop transferred to ICU for further observation. Magdi KHAN'd, voiding
trial. Vascular checks per vascular surgery. stable
Discussed with vascular surgery, IV heparin transition to Xarelto. Plavix discontinued. Now on aspirin and Xarelto. Discharge home today
Vascular surgery following
Will need w/u for thrombophilia - hematology following. Follow-up outpatient
Discussed with cardiology and patient will follow-up with them outpatient
Anemia likely hemodilutional
Monitor
Hyponatremia
Monitor
#Osteoporosis
#Glaucoma
#HLD
cont home meds
DVT ppx heparin drip
Full code
General: No Apparent Distress
HEENT: Normocephalic
Respiratory: Clear to Auscultation
Cardiac: Regular Rhythm
Genito-urinary: No Costovertebral Tender
Musculoskeletal: No Edema
Neuro: Awake, Alert, Oriented and AO x 3
Psych: Calm
Anticipated Discharge: Today
Subjective/Interval History
-
Date of Service: February 08, 2025
denies nausea
Objective Data
-
Labs:
Laboratory Results
02/08/25 02/08/25
05:05 11:00
WBC 13.2 H
Hgb 10.9 L
Hct 32.4 L
Plt Count 146
APTT 87.3 H Pending
Sodium 133 L
Potassium 4.2
Chloride 103
Carbon Dioxide 24
BUN 8
Creatinine 0.5 L
Glucose 116 H
Calcium 8.0 L
Vital Signs:
Vital Signs
Temp Pulse Resp BP Pulse Ox
97.5 F 86 12 110/54 98
02/08/25 11:30 02/08/25 10:00 02/08/25 08:00 02/08/25 08:25 02/07/25 19:35
I&O
02/07/25 02/08/25 02/09/25
06:59 06:59 06:59
Intake Total 1485 / 1485 1467 / 1467
Output Total 1240 / 1240 850 / 850 300 / 300
Balance 245 / 245 617 / 617 -300 / -300
--- NOTE | 2025-02-08 12:39 | PTCARENOTE ---
pt now written for telemetry status, she is off her heparin drip since 1029 , she is on zaralto and aspirin therapy , her her surgical dressings were removed this am by Dr Fairbanks , she has ambulated the hallway with a walker with out difficultly
--- NOTE | 2025-02-08 12:50 | W.DCSUMMARY ---
Discharge Summary
Discharge Data
Date of Admission: 02/01/25
Date of Discharge: 02/08/25
-
Pending Results: No
Hospital Course
79-year-old female with past medical history of osteoporosis, hyperlipidemia, CAD came from the vascular surgery office for bilateral SFA occlusion that was diagnosed on outpatient CT scan. Given occlusion, cardiology was consulted for
thromboembolic source. Patient underwent echo and later stress test which did not show any acute abnormality. Patient initially was on IV heparin which was later transitioned to Xarelto prior to discharge. Patient was also seen by hematology for
thrombophilia workup. Some of the studies were still pending prior to discharge and patient instructed to follow-up with hematology outpatient. On patient underwent left superficial femoral artery to below the knee popliteal artery bypass.
Postop patient was transferred to the ICU. Over time she continued to improve. She was also evaluated by physical therapy who recommended home health. Once her symptoms continue to improve, she was then discharged with instructions to follow-up
with all her physicians outpatient.
Discharge Plan
-
Patient Disposition: Home (Routine Discharge)
Discharge Diagnosis/Procedures: critical ischemia of LE 2/2 b/l SFA occlusion
s/p Left superficial femoral artery to below the knee popliteal artery bypass with 6 mm [place] ringed Propaten graft. Roby thrombectomy left superficial femoral artery
Diet: As tolerated
Activity: As tolerated
Driving Restrictions: Not until seen by your Dr
Bathing Restrictions: None
Stand Alone Forms: DC Instr - Vascular OR
Referrals:
Lan Leslie DO [Active] -
Daljit Diaz MD [Active] - 08/21/25 2:00 pm (Cardiology office follow-up)
Radha Bartlett PA-C [Specified Professional Personl] - 02/26/25 2:00 pm (Vascular surgery office follow-up)
Rita Seay CRNP [Specified Professional Personl] - 03/08/25 10:40 am
Josselyn Rehman DO [Family Provider] - in less than 1 week
Additional Discharge Medication Instructions: Stop Plavix
Start aspirin 81 mg daily and Xarelto 20 mg daily
Prescriptions:
New
aspirin 81 mg Tablet,Chewable
81 mg PO DAILY Qty: 120 0RF
Xarelto 20 mg Tablet
20 mg PO QPM Qty: 30 0RF
acetaminophen 325 mg Tablet
650 mg PO Q4HPRN PRN (Reason: mild pain/PATEL/temp> 100.4F) Qty: 0 0RF
metoprolol succinate 25 mg Tablet Extended Release 24 Hr
25 mg PO BID Qty: 60 0RF
oxycodone 5 mg Tablet
5 mg PO Q4HPRN PRN (Reason: moderate pain) Qty: 20 0RF
pantoprazole 40 mg Tablet,Delayed Release (Dr/Ec)
40 mg PO BID Qty: 60 0RF
polyethylene glycol 3350 17 gram Powder In Packet
17 g PO DAILYPRN PRN (Reason: constipation) Qty: 0 0RF
rosuvastatin 20 mg Tablet
20 mg PO DAILY Qty: 30 0RF
Continued
latanoprost 0.005 % Drops
1 drp BOTH EYES HS
alendronate 70 mg Tablet
70 mg PO PEREZ
calcium carbonate 500 mg calcium (1,250 mg) Tablet
500 mg PO DAILY
rosuvastatin 5 mg Tablet
5 mg PO DAILY
cholecalciferol (vitamin D3) [Vitamin D3] 50 mcg (2,000 unit) Tablet
50 mcg PO DAILY
Discontinued
clopidogrel 75 mg Tablet
75 mg PO DAILY
Discharge Orders:
Discharge Patient (As Directed); Ordered 02/08/25
Ordered By: David Doran
Discharge Date and Time
Discharge Date/Time: 02/08/25 15:27
Print Language: AUSTRALIAN
--- NOTE | 2025-02-08 14:35 | PTCARENOTE ---
pt given DC instructions , both patient and verbalized DC instructions
[2025-02-08 19:40] LABS: PT (F2) G20210A Variant Negative; Pt Gene Variant-PCR Specimen Whole Blood
== END 2025-02-08 15:27 | disposition home health service (06) | DRG 253 ==
LOC: ICU 17:55
PROVIDERS: Emergency Medicine; Nurse Practitioner; Nurse Practitioner Acute Care; Nurse Practitioner Gerontology; Surgery; Surgery Vascular Surgery; ADMITTING PHYSICIAN Internal Medicine; ATTENDING PHYSICIAN Internal Medicine; CONSULT PHYSICIAN Internal Medicine; CONSULT PHYSICIAN Internal Medicine Cardiovascular Disease; CONSULT PHYSICIAN Internal Medicine Hematology & Oncology; EMERGENCY PHYSICIAN Emergency Medicine; FAMILY PHYSICIAN Family Medicine
PROC: 041L0JL Bypass Left Femoral Artery to Popliteal Artery with Synthetic Substitute, Open Approach (ICD-10-PCS; 2025-02-06)
PROC: 04CL0ZZ Extirpation of Matter from Left Femoral Artery, Open Approach (ICD-10-PCS; 2025-02-06)
DX: I70.222 Atherosclerosis of native arteries of extremities with rest pain, left leg (principal); D68.52 Prothrombin gene mutation; E87.1 Hypo-osmolality and hyponatremia; I74.3 Embolism and thrombosis of arteries of the lower extremities; E78.00 Pure hypercholesterolemia, unspecified; I25.10 Atherosclerotic heart disease of native coronary artery without angina pectoris; M81.0 Age-related osteoporosis without current pathological fracture; Z79.01 Long term (current) use of anticoagulants; I10 Essential (primary) hypertension; D64.9 Anemia, unspecified
CPT/HCPCS: 88304; 78452; 80048; 80053; 80061; 81240; 83036; 83605; 83735; 84100; 84443; 85025; 85027; 85520; 85525; 85610; 85613; 85652; 85670; 85730; 85732; 86140; 86146; 86147; 86850; 86900; 86901; 93005; 93017; 93306; 93922; 93925; 93970; 96365; 96366; 97162; 99284; A9500; J2785

== ENCOUNTER → 2025-03-12 13:08 | Outpatient (REF) | payer OTHER, SELFPAY | LOC: RAD 13:08 | PROVIDERS: ATTENDING PHYSICIAN Physician Assistant; FAMILY PHYSICIAN Family Medicine | DX: I73.9 Peripheral vascular disease, unspecified (principal) | CPT/HCPCS: 93922; 93925 ==

== ENCOUNTER → 2025-08-20 07:48 | Outpatient (REF) | payer OTHER, SELFPAY | LOC: RAD 07:48 | PROVIDERS: ATTENDING PHYSICIAN Surgery Vascular Surgery; FAMILY PHYSICIAN Family Medicine | DX: I73.9 Peripheral vascular disease, unspecified (principal) | CPT/HCPCS: 93922; 93925 ==

== ENCOUNTER 2025-10-03 06:13 | Day surgery (SDC) | payer OTHER, SELFPAY ==
[2025-09-30 09:22] VITALS: BMI 24.5
[2025-09-30 09:55] LABS: Hematocrit 38.5 % (37.0-47.0); Hemoglobin 12.6 g/dL (12.0-16.0); Mean Corp Hgb Conc. 32.7 g/dL (33.0-37.0); Mean Corpuscular Volume 91.4 fL (81.0-99.0); Nucleated Red Blood Cells % 0 %; Platelet Count 140 10^3/uL (130-400); Red Cell Dist. Width 13.3 % (11.5-14.5)
[2025-09-30 10:01] LABS: INR 1.37; PT 17.0 Sec (11.4-14.6)
[2025-09-30 10:02] LABS: APTT 37.5 Sec (23.4-35.0)
[2025-09-30 10:10] LABS: Blood Urea Nitrogen 11 mg/dl (7-17); Calcium 8.9 mg/dl (8.4-10.2); Carbon Dioxide 30 mmol/L (22-30); Chloride 104 mmol/L (98-107); Estimated Creatinine Clearance 64 ml/min; Glucose 98 mg/dl (70-99); Potassium 4.3 mmol/L (3.5-5.1); Sodium 140 mmol/L (135-145); eGFR > 60.00
--- NOTE | 2025-10-01 08:37 | PTCARENOTE ---
INR 1.37, Irina @ Dr. Gaitan's office made aware.
[2025-10-03] VITALS (19 sets, daily range): BP systolic 107–146; BP diastolic 53–90; BMI 23.5
[2025-10-03] MEDS: NSS 500 IV (07:09)
--- NOTE | 2025-10-03 08:46 | OR.RPT ---
Operative Report
Operative Report
PROCEDURE DATE: 10/03/2025
Preoperative diagnosis: Peripheral arterial disease status post left lower extremity arterial bypass, new stenosis and SFA proximal inflow to bypass. Concern for failing bypass.
Postoperative diagnosis: Same
Procedure:
1. Duplex assisted cannulation of right common femoral artery.
2. Aortogram and pelvic angiogram.
3. Left lower extremity arteriogram.
4. Balloon angioplasty/stent placement left superficial femoral artery with [place] Zilver PTX 7 mm x 8 cm self-expanding drug-eluting stent.
5. Right femoral angiogram.
6. Supervision and interpretation.
Surgeon: Arnie
Medical Receptionist Medical Assistant: None
Complications: None
Anesthesia: General
Fluoroscopy:
6.5 min
40 mGy
Indications for procedure:
Concern for failing bypass with stenosis proximal to the proximal anastomosis (SFA severe stenosis). Risk/benefit/alternatives of angiography fully discussed. Patient understood all wished to proceed.
Description of procedure:
Patient was identified, brought to the operating room. Placed on the table in the supine position. After the adequate administration of anesthesia, the patient was prepped and draped in the standard surgical fashion. A standard preoperative
timeout was undertaken and everybody was in agreement with the plan.
The right common femoral artery was accessed with a micropuncture kit under direct duplex ultrasound guidance. A 5 [place] sheath was then advanced over a 0.035 inch wire, and a osborne's hook catheter was advanced into the abdominal aorta.
Aortogram and pelvic angiogram was obtained. Findings as follows:
Patent infrarenal abdominal aorta and bilateral common and external iliac arteries with no significant stenosis.
Using a floppy angled hydrophilic wire, the left common femoral artery was cannulated and the catheter was advanced. Left lower extremity arteriogram was obtained. Findings as follows:
Common femoral artery: Patent with no significant stenosis.
Profunda femoris artery: Patent with no significant stenosis.
Superficial femoral artery: Patent with no proximal stenosis. However in the segment just proximal to the bypass graft which arose in the middle third of the artery, there was a segment of about 4 to 6 cm of diffuse stenosis with likely plaque
dissection or stenosis. The proximal anastomosis of the bypass is widely patent. The bypass graft itself is nicely patent. Distal anastomosis of the bypass graft actually looked patent with no obvious stenosis. The popliteal artery it was
anastomosed to was patent and not definitively stenotic, but just slightly small.
Patent three-vessel runoff beyond here. Peroneal artery became somewhat diminutive and was a small artery. Posterior tibial artery also had a moderate at least stenosis at the ankle focally.
At this point I selectively cannulated the superficial femoral artery and then the bypass graft, and then exchanged for a Storq wire and then an up and over 6 [place] sheath over the Storq wire. The patient had been given 6000 units of intravenous
heparin. I confirmed angiographically that when I crossed with the wire the area of stenosis and advance the wire into the bypass graft that I was in the true luminal (angiogram was confirmed through the catheter). At this point, I elected to
primarily stent the severe area of distal SFA stenosis, and had to stent it into the bypass graft as there was not sufficient room to land it distally. Therefore used a 7 mm x 8 cm [employer] Zilver PTX self-expanding drug-eluting stent. This was post
angioplastied with a 6 mm balloon. Completion angiogram demonstrated an excellent result with complete resolution of the stenosis and much brisker flow through the bypass graft now. Preserved flow into the runoff. At this point is very satisfied.
I withdrew the sheath to the right external iliac artery. Right femoral angiogram demonstrated good puncture in the right common femoral artery. However there was some disease in the common femoral and external iliac artery and therefore I
elected not to use any closure devices. We exchanged for a shorter 6 [place] sheath. All wires were withdrawn. The patient was transferred to the recovery room where the sheath was withdrawn and manual pressure was applied. Hemostasis was fully
achieved. The patient tolerated procedure well. She had a 2+ palpable DP pulse and 1+ PT pulse palpable upon completion.
[2025-10-03] MEDS: TYLENOL 650 MG PO (10:11)
== END 2025-10-03 14:50 | disposition home or self-care (01) ==
LOC: CATH 06:13
PROVIDERS: ATTENDING PHYSICIAN Surgery Vascular Surgery; OTHER PHYSICIAN Internal Medicine; PRIMARYCARE PHYSICIAN Family Medicine
DX: T82.858D Stenosis of other vascular prosthetic devices, implants and grafts, subsequent encounter (principal); Y83.2 Surgical operation with anastomosis, bypass or graft as the cause of abnormal reaction of the patient, or of later complication, without mention of misadventure at the time of the procedure; E78.5 Hyperlipidemia, unspecified; Z79.82 Long term (current) use of aspirin; Z87.891 Personal history of nicotine dependence; Z79.01 Long term (current) use of anticoagulants; I73.9 Peripheral vascular disease, unspecified; Z88.0 Allergy status to penicillin; Z88.5 Allergy status to narcotic agent; I49.1 Atrial premature depolarization
CPT/HCPCS: 37226; 36415; 75625; 75710; 80048; 85025; 85610; 85730; 86850; 86900; 86901; 93005; C1725; C1769; C1874; C1887; C1894; Q9967